=== PATIENT | female | born 1965 | race Caucasian/White ===

== ENCOUNTER 2016-07-07 16:40 | Inpatient (IN) | payer BC, OTHER ==
[~2016-07-07] VITALS: Ht 162.6 cm; Wt 59.0 kg
[2016-07-07] MEDS ORDERED: SODIUM CHLORIDE 0.9% 1L BAG IV* STA (17:42)
--- NOTE | 2016-07-07 18:05 | RADRPT ---
PROCEDURE: Chest x-ray CLINICAL INDICATION: Sepsis TECHNIQUE: Chest single view COMPARISON: None FINDINGS: There is a right IJ Port-A-Cath with tip in the SVC. The heart is normal in size. The pulmonary ve ssels are normal in caliber. The lungs are clear. The costophrenic angles are sharp. The visualiz ed bony thorax is unremarkable. Incidental surgical clips are noted in the right neck IMPRESSION: No acute cardiopulmonary disease. Port-A-Cath RPTAT: HH .Allen Gresham MD, MD Date Time Electronically viewed and signed by .Allen Gresham MD, on 07/07/2016 18:05 .W/
[2016-07-07] MEDS ORDERED: OXYC-279 PO (18:21)
[2016-07-07] MEDS ORDERED: ALPR1TAB7 PO (18:22)
[2016-07-07] MEDS ORDERED: OMEP40CA6 PO (18:23)
[2016-07-07] MEDS ORDERED: DULO60CA59 PO (18:23)
[2016-07-07] MEDS ORDERED: MORP15TA92 PO (18:24)
[2016-07-07 18:27] LABS: ADD SCAN DIFF NO
[2016-07-07 18:34] LABS: EOSINOPHILS % 0.1 % (0.0-7.0); HEMATOCRIT 23.3 % (37.0-47.0); HEMOGLOBIN 7.2 g/dl (12.0-16.0); LYMPHOCYTES # 1.4 10^3/ul (0.8-2.9); LYMPHOCYTES % 16.8 % (15.0-51.0); MEAN CORPUSCULAR HEMOGLOBIN 26.8 pg (29.0-33.0); MEAN CORPUSCULAR HGB CONC 30.9 g/dl (32.0-37.0); MEAN CORPUSCULAR VOLUME 86.6 fl (82.0-101.0); MONOCYTE # 0.7 10^3/ul (0.3-0.9); MONOCYTES % 8.4 % (0.0-11.0); NEUTROPHIL # 6.3 10^3/ul (1.6-7.5); NEUTROPHILS % 73.1 % (39.0-77.0); PLATELET COUNT 267 10^3/UL (140-415); RED BLOOD COUNT 2.69 10^6/ul (4.20-5.40); RED CELL DISTRIBUTION WIDTH 17.3 % (11.5-14.5); WHITE BLOOD COUNT 8.6 10^3/ul (4.8-10.8)
[2016-07-07 18:48] LABS: INR 1.07; PROTIME 13.9 Sec (12.2-14.2); PT RATIO 1.1
[2016-07-07 18:53] LABS: ALANINE AMINOTRANSFERASE 28 IU/L (13-69); ALBUMIN 2.9 g/dl (3.3-4.9); ALBUMIN/GLOBULIN RATIO 1.03; ALKALINE PHOSPHATASE 80 IU/L (42-121); ANION GAP 10 (8-16); ASPARTATE AMINO TRANSFERASE 26 IU/L (15-46); BLOOD UREA NITROGEN 15 mg/dl (7-20); CALCIUM 8.3 mg/dl (8.4-10.2); CARBON DIOXIDE 28 mmol/L (21-31); CHLORIDE 104 mmol/L (97-110); CREATININE 0.85 mg/dl (0.44-1.00); GLUCOSE 95 mg/dl (70-220); POTASSIUM 3.6 mmol/L (3.5-5.1); SODIUM 138 mmol/L (135-144); TOTAL PROTEIN 5.7 g/dl (6.1-8.1)
[2016-07-07] MEDS ORDERED: SOD CHLORIDE 0.9% 250 ML IV ONE (19:01)
[2016-07-07 19:04] LABS: TROPONIN-I < 0.012 ng/ml (0.00-0.12)
[2016-07-07] MEDS ORDERED: HYDROmorphONE 1 MG/ML SYG IV STA ×2 (19:11→21:08)
[2016-07-07 19:44] LABS: PARTIAL THROMBOPLASTIN TIME > 180.0 Sec (25.0-35.0)
[2016-07-07 20:09] LABS: ADD UMIC YES; URINE BILIRUBIN (Dip) NEGATIVE (NEGATIVE); URINE BLOOD (Dip) NEGATIVE (NEGATIVE); URINE COLOR LT. YELLOW (YELLOW); URINE GLUCOSE (Dip) NEGATIVE (NEGATIVE); URINE KETONES (Dip) NEGATIVE (NEGATIVE); URINE LEUKOCYTE ESTERASE (Dip) TRACE (NEGATIVE); URINE NITRITE (Dip) NEGATIVE (NEGATIVE); URINE TOTAL PROTEIN (Dip) NEGATIVE (NEGATIVE); URINE UROBILINOGEN (Dip) 0.2 E.U./dL (0.1-1.0)
[2016-07-07 20:17] LABS: SQUAMOUS EPITHELIAL CELL,UR FEW; URINE RBCS 0-2 /HPF (0)
[2016-07-07] MEDS ORDERED: CEFEPIME 1GM/50 ML (PMX) 50 ML IVPB ONE (20:30)
--- NOTE | 2016-07-07 21:22 | ERA ---
ER Documentation Chief Complaint Date/Time DATE: 07/07/16 TIME: 21:15 Chief Complaint HYPOTENSION, PALE, SENT FROM ONCOLOGIST OFFICE HPI This 50-year-old female presents to the ER with extreme hypotension her doctor' s office as well as feeling very weak dizzy and tired. She has a history of needing transfusions for anemia secondary her chemotherapy for her tongue cancer. She has previously had radiation and surgery however she developed tongue cancer in the other side of her tongue. Her last chemo was 2 weeks ago and she has become increasingly tired and occasionally short of breath since then. She was extremely lightheaded and weak today. She does deny chest pain as well as fevers and chills. ROS All systems reviewed and are negative except as per history of present illness. Medications Home Meds Reported Medications Morphine Sulfate* (Ms Contin*) 15 Mg Tablet.sa, 15 MG PO Q12, TAB 07/07/16 Duloxetine Hcl* (Duloxetine Hcl*) 60 Mg Capsule.dr, 120 MG PO DAILY, #30 CAP 07/07/16 Omeprazole* (Omeprazole*) 40 Mg Capsule.dr, 40 MG PO DAILY, #30 CAP 07/07/16 Alprazolam* (Alprazolam*) 1 Mg Tablet, 1 MG PO TID Y for ANXIETY, TAB 07/07/16 Oxycodone HCl/Acetaminophen (Percocet 5-325 mg Tablet) 1 Each Tablet, 2 TAB PO Q4H Y for PRN, TAB 07/07/16 Allergies Allergies: Coded Allergies: No Known Allergy (Unverified , 07/07/16) PMhx/Soc History of Surgery: Yes (LEFT ANKLE SX,OVARIAN CYST REMOVAL,GT PLACEMENT) Anesthesia Reaction: No Hx Neurological Disorder: No Hx Respiratory Disorders: No Hx Cardiac Disorders: No Hx Psychiatric Problems: No Hx Miscellaneous Medical Probl: Yes (TONGUE CA) Hx Alcohol Use: No Hx Substance Use: No Hx Tobacco Use: No Smoking Status: Never smoker Physical Exam Vitals Vital Signs Date Time Temp Pulse Resp B/P Pulse Ox O2 Delivery O2 Flow Rate FiO2 07/07/16 16:46 97.8 90 18 86/51 100 Physical Exam Const: [] Moderate distress, very uncomfortable appearing, pale, ill- appearing Head: Atraumatic Eyes: Pale conjunctiva, EOMI, PRL ENT: Normal External Ears, Nose and Mouth. Neck: Full range of motion..~ No meningismus. Resp: Clear to auscultation bilaterally Cardio: Regular rate and rhythm, no murmurs Abd: Soft, non tender, non distended. Normal bowel sounds Skin: No petechiae or rashes, very pale Back: No midline or flank tenderness Ext: No cyanosis, or edema, distal pulses 1 out of 4 all extremities. Strong central pulses Neur: Awake and alert and oriented 3, no focal deficits Psych: Normal Mood and Affect Result Diagram: 07/07/16 1800 07/07/16 1800 Results 24 hrs Laboratory Tests Test 07/07/16 18:00 07/07/16 19:58 White Blood Count 8.610^3/ul Red Blood Count 2.6910^6/ul Hemoglobin 7.2g/dl Hematocrit 23.3% Mean Corpuscular Volume 86.6fl Mean Corpuscular Hemoglobin 26.8pg Mean Corpuscular Hemoglobin Concent 30.9g/dl Red Cell Distribution Width 17.3% Platelet Count 30656^3/UL Mean Platelet Volume 11.0fl Neutrophils % 73.1% Lymphocytes % 16.8% Monocytes % 8.4% Eosinophils % 0.1% Basophils % 0.0% Nucleated Red Blood Cells % 0.0/100WBC Neutrophils # 6.310^3/ul Lymphocytes # 1.410^3/ul Monocytes # 0.710^3/ul Eosinophils # 0.010^3/ul Basophils # 0.010^3/ul Nucleated Red Blood Cells # 0.010^3/ul Prothrombin Time 13.9Sec Prothrombin Time Ratio 1.1 INR International Normalized Ratio 1.07 Activated Partial Thromboplast Time > 180.0Sec Sodium Level 138mmol/L Potassium Level 3.6mmol/L Chloride Level 104mmol/L Carbon Dioxide Level 28mmol/L Anion Gap 10 Blood Urea Nitrogen 15mg/dl Creatinine 0.85mg/dl Glucose Level 95mg/dl Lactic Acid Level 0.7mmol/L Calcium Level 8.3mg/dl Total Bilirubin 0.0mg/dl Direct Bilirubin 0.00mg/dl Indirect Bilirubin 0.0mg/dl Aspartate Amino Transf (AST/SGOT) 26IU/L Alanine Aminotransferase (ALT/SGPT) 28IU/L Alkaline Phosphatase 80IU/L Troponin I < 0.012ng/ml Total Protein 5.7g/dl Albumin 2.9g/dl Globulin 2.80g/dl Albumin/Globulin Ratio 1.03 Urine Color LT. YELLOW Urine Clarity CLEAR Urine pH 6.0 Urine Specific [place] <=1.005 Urine Ketones NEGATIVE Urine Nitrite NEGATIVE Urine Bilirubin NEGATIVE Urine Urobilinogen 0.2 E.U./dL Urine Leukocyte Esterase TRACE Urine Microscopic RBC 0-2/HPF Urine Microscopic WBC 5-10/HPF Urine Squamous Epithelial Cells FEW Urine Hemoglobin NEGATIVE Urine Glucose NEGATIVE% Urine Total Protein NEGATIVE Current Medications Medications (Trade) Dose Ordered Sig/Jason Route PRN Reason Start Time Stop Time Status Last Admin Dose Admin Sodium Chloride 2110 ml 2,110 ml BOLUS OVER 2 HOURS STAT IV* 07/07/16 17:42 07/07/16 17:44 DC 07/07/16 18:35 Sodium Chloride (NS) 250 ml @ 0 mls/hr Q0M ONCE IV 07/07/16 19:01 07/07/16 19:04 DC Hydromorphone HCl 1 mg 1 mg ONCE STAT IV 07/07/16 19:11 07/07/16 19:12 DC 07/07/16 19:23 Cefepime HCl (Maxipime 1gm/50 ml (Pmx)) 50 ml @ 100 mls/hr ONCE ONCE IVPB 07/07/16 20:30 07/07/16 20:59 DC Hydromorphone HCl (Dilaudid) 1 mg ONCE STAT IV 07/07/16 21:08 07/07/16 21:09 DC Procedures/MDM Acute hypotension and generalized weakness secondary to low hemoglobin. Urinary tract infection may also be a factor in this. Patient had 5-10 white cells per high-powered field and positive leukocyte esterase. Did give her 1 g of cefepime. Was also given a liter of IV fluid. Entrance using 2 units of packed red blood cells. Patient is not neutropenic currently. Patient was hypotensive initially but responded to fluid resuscitation and blood products administration. She did have severe pain of her tongue which is chronic secondary to her malignancy. She was given Dilaudid twice for this pain. She is going to be admitted for further monitoring, blood transfusion further treatment. Urine culture and blood cultures were obtained. Dr. Hughes is admitting. Chest x-ray interpretation normal sinus rhythm rate of 67, normal axis, normal intervals, no ST or T-wave changes concerning for acute ischemia v block saw operator interpretation: Normal sinus rhythm without arrhythmias Critical care time 31 minutes: This includes treatment of acute hypertension with symptomatic anemia immunosuppressed chemotherapy patient, antibiotic administration, careful fluid administration in the setting of need for blood products, multiple visits patient's bedside to reassess status, chart reviewed, discussion with admitting Dr. patient patient's significant other. This does not include any billable procedures. Departure Diagnosis: Primary Impression: Hypotension Additional Impressions: Symptomatic anemia UTI (urinary tract infection) Condition: Serious THERON STEVENS DO July 07, 2016 21:22
[2016-07-07] MEDS ORDERED: ACETAMINOPHEN 325 MG TAB PO PRN (22:00)
[2016-07-07] MEDS ORDERED: ONDANSETRON 4 MG INJ IV PRN (22:00)
[2016-07-07 22:30] VITALS: TEMP 96
[2016-07-07 23:00] VITALS: Ht 162.6 cm; Wt 59.0 kg
[2016-07-08] VITALS (12 sets, daily range): BP systolic 93–152; BP diastolic 52–67; PULSE 62–81; RESP 16–20
[2016-07-08] MEDS: HYDROmorphONE 1 MG/ML SYG IV PRN ×3 (00:55→11:49)
[2016-07-08] MEDS ORDERED: NACL 0.9% 3 ML SYG IV SCH (04:00)
[2016-07-08] MEDS ORDERED: DOCUSATE SODIUM 100 MG CAP PO PRN (04:00)
[2016-07-08] MEDS ORDERED: ACETAMINOPHEN 650 MG SUPP PR PRN (04:00)
[2016-07-08] MEDS ORDERED: BISACODYL (EC) 5 MG TAB PO PRN (04:00)
[2016-07-08] MEDS ORDERED: ACETAMINOPHEN 325 MG TAB PO PRN (04:00)
[2016-07-08] MEDS: FAMOTIDINE 20 MG TAB PO SCH ×2 (05:56→07:59)
[2016-07-08] MEDS: SOD CHLORIDE 0.9% 1,000 ML IV SCH ×2 (06:00→16:30)
[2016-07-08 07:31] LABS: ADD SCAN DIFF NO
[2016-07-08 07:40] LABS: BASOPHILS % 0.3 % (0.0-2.0); EOSINOPHILS % 0.3 % (0.0-7.0); HEMATOCRIT 30.2 % (37.0-47.0); HEMOGLOBIN 9.9 g/dl (12.0-16.0); LYMPHOCYTES # 1.5 10^3/ul (0.8-2.9); LYMPHOCYTES % 19.7 % (15.0-51.0); MEAN CORPUSCULAR HGB CONC 32.8 g/dl (32.0-37.0); MEAN CORPUSCULAR VOLUME 85.6 fl (82.0-101.0); MEAN PLATELET VOLUME 10.7 fl (7.4-10.4); MONOCYTE # 0.8 10^3/ul (0.3-0.9); MONOCYTES % 10.2 % (0.0-11.0); NEUTROPHIL # 5.1 10^3/ul (1.6-7.5); PLATELET COUNT 253 10^3/UL (140-415); RED BLOOD COUNT 3.53 10^6/ul (4.20-5.40); RED CELL DISTRIBUTION WIDTH 15.5 % (11.5-14.5); WHITE BLOOD COUNT 7.5 10^3/ul (4.8-10.8)
[2016-07-08 08:01] LABS: ALBUMIN 2.7 g/dl (3.3-4.9); ALBUMIN/GLOBULIN RATIO 1.03; BILIRUBIN,INDIRECT 0.1 mg/dl (0-1.1); BILIRUBIN,TOTAL 0.1 mg/dl (0.2-1.3); CALCIUM 8.4 mg/dl (8.4-10.2); CREATININE 0.83 mg/dl (0.44-1.00); POTASSIUM 3.5 mmol/L (3.5-5.1); TOTAL PROTEIN 5.3 g/dl (6.1-8.1)
--- NOTE | 2016-07-08 08:55 | HP ---
Date/Time of Note Date/Time of Note DATE: 07/08/16 TIME: 08:48 Assessment/Plan VTE Prophylaxis VTE Prophylaxis Intervention: contraindicated (Anemia) Lines/Catheters IV [facility]from [facility] Urinary Cath still in place: No Assessment/Plan Chief Complaint/Hosp Course This is a 50-year-old female being admitted to [facility] floor for: #1 symptomatic anemia: Patient had a hemoglobin of 7.2 she did receive blood transfusion. We will continue to monitor H&H every 6 hours. Patient does report that she has noticed some bright red blood per rectum when wiping. She denies she denies any overt pools of blood in the toilet. Will order occult stool for blood. And consult GI if necessary. #2 suspected UTI: Patient did have trace leukoesterase though she denies any overt urinary symptoms. She was started on cefepime by the ED physician. Secondary to her medical condition at this time and her active cancer treatment. I will treat her with Rocephin to complete a course for suspected UTI. #3 Tongue cancer: Patient is currently being treated by oncology for her recurrent cancer. Will consult patient's oncologist for any further management recommendations. #4 DVT GI prophylaxis: SCDs, famotidine Problems: HPI/ROS Admit Date/Time Admit Date/Time July 07, 2016 at 21:39 Hx of Present Illness This 50-year-old female presents to the ER with extreme hypotension her doctor' s office as well as feeling very weak dizzy and tired. She has a history of needing transfusions for anemia secondary her chemotherapy for her tongue cancer. She has previously had radiation and surgery however she developed tongue cancer in the other side of her tongue. Her last chemo was 2 weeks ago and she has become increasingly tired and occasionally short of breath since then. She was extremely lightheaded and weak today. She denies any fevers or chills or chest pain. Allergies: NKDA Medications: See MAR ROS Const: See HPI Eyes : No pain discharge or redness or change in visual acuity ENT: No pain, sore throat, congestion, congestion, dysphagia or discharge Respiratory: No shortness of breath, cough, sputum, wheezing, or pleuritic pain Cardiovascular: No chest pain, palpitation, PND, or edema GI : no change in appetite, abdominal pain, nausea, vomiting, diarrhea, constipation, or change in the color his stool Genitourinary: see HPI Musculoskeletal: No joint pain, back pain, neck pain, restricted range of motion in neck or joints Skin: No rash, bruising or hives Neuro: No headache, dizziness, syncope, seizure, focal weakness Endocrine: No polyuria, polydipsia, temperature intolerance Psych: No hallucination, depression, anxiety or suicidal ideation PMH/Family/Social Past Medical History Tongue cancer, anemia Past Surgical History Glossectomy, no surgery, left ankle repair Family History Significant Family History: diabetes Social History Smoking Status: Former smoker (5 cigarettes a day 10 years, quit 1 year ago) Exam/Review of Systems Vital Signs Vitals Vital Signs Date Time Temp Pulse Resp B/P Pulse Ox O2 Delivery O2 Flow Rate FiO2 07/08/16 08:07 62 07/08/16 07:13 97.7 16 109/59 95 07/07/16 22:30 Room Air Exam Exam General: Patient appears weak and fatigued HEENT: Dry mouth Neck: Supple with full range of motion. No rigidity or meningismus Chest: Nontender Lungs: Clear to auscultation bilaterally no crackles rales or wheezing Heart: Normal S1-S2, Regular rhythm and rate. No murmur Abdomen: Soft , nontender, nondistended , bowel sounds are present. No guarding no rebound tenderness , Extremities: Normal to inspection, no edema no cyanosis Neurologic: Normal mental status, speech normal, cranial nerves II through XII are intact, motor and sensory are intact, no focal weakness Additional Comments PROCEDURE: Chest x-ray CLINICAL INDICATION: Sepsis TECHNIQUE: Chest single view COMPARISON: None FINDINGS: There is a right IJ Port-A-Cath with tip in the SVC. The heart is normal in size. The pulmonary vessels are normal in caliber. The lungs are clear. The costophrenic angles are sharp. The visualized bony thorax is unremarkable. Incidental surgical clips are noted in the right neck IMPRESSION: No acute cardiopulmonary disease. Port-A-Cath Labs Result Diagram: 07/08/1645 07/08/16644 Medications Medications Current Medications Hydromorphone HCl (Dilaudid) 1 mg Q4H PRN IV PAIN Last administered on t 05:56; Admin Dose 1 MG; Start 07/08/16 at 00:30 Acetaminophen (Tylenol Tab) 650 mg Q6H PRN PO PAIN LEVEL 1-3 OR FEVER; Start at 04:00 Acetaminophen (Tylenol Supp) 650 mg Q6H PRN OR PAIN LEVEL 1-3 OR FEVER; Start 07/08/16 at 04:00 Docusate Sodium (Colace) 100 mg Q12H PRN PO CONSTIPATION; Start 07/08/16 at 04: 00 Bisacodyl (Dulcolax) 5 mg DAILY PRN PO CONSTIPATION; Start 07/08/16 at 04:00 Famotidine 20 mg 20 mg Q12 PO Last administered on 07/08/16 05:56; Admin Dose 20 MG; Start 07/08/16 at 04:10 Sodium Chloride (NS) 1,000 ml @ 80 mls/hr [id number] IV Last administered on 07/08 06:00; Admin Dose 80 MLS/HR; Start 07/08/16 at 04:00 RODOLFO DAVIS July 08, 2016 08:55
[2016-07-08] MEDS: CEFTRIAXONE 1 GM/50 ML (PMX) 50 ML IVPB SCH (11:48)
[2016-07-08 12:14] LABS: ADD SCAN DIFF NO
[2016-07-08 12:24] LABS: BASOPHILS % 0.2 % (0.0-2.0); EOSINOPHILS % 0.4 % (0.0-7.0); HEMATOCRIT 29.7 % (37.0-47.0); HEMOGLOBIN 9.9 g/dl (12.0-16.0); LYMPHOCYTES # 1.2 10^3/ul (0.8-2.9); LYMPHOCYTES % 21.4 % (15.0-51.0); MEAN CORPUSCULAR HEMOGLOBIN 28.3 pg (29.0-33.0); MEAN CORPUSCULAR HGB CONC 33.3 g/dl (32.0-37.0); MEAN CORPUSCULAR VOLUME 84.9 fl (82.0-101.0); MEAN PLATELET VOLUME 10.7 fl (7.4-10.4); MONOCYTE # 0.6 10^3/ul (0.3-0.9); MONOCYTES % 10.1 % (0.0-11.0); NEUTROPHIL # 3.7 10^3/ul (1.6-7.5); NEUTROPHILS % 66.3 % (39.0-77.0); PLATELET COUNT 247 10^3/UL (140-415); RED CELL DISTRIBUTION WIDTH 15.7 % (11.5-14.5); WHITE BLOOD COUNT 5.6 10^3/ul (4.8-10.8)
--- NOTE | 2016-07-08 15:01 | CONS ---
Date/Time of Note Date/Time of Note DATE: 07/08/16 TIME: 14:41 Assessment/Plan Assessment/Plan Additional Assessment/Plan Assessment * Anemia Hematochezia Consider lower GI bleed probably diverticulosis,inflammatory condition ,av malformation R/O upper GI bleed R/O tongue cancer History of chemotherapy sec to tongue cancer Plan * monitor hemoglobin and hematocrit q6 and transfuse 1 unit PRBC for Hgb <7.5,2 units PRBC Hgb less than 7 * EGD/colonoscopy 07/09/2016 risks and benefit explained to patient and agreed with planned procedure Consultation Date/Type/Reason Admit Date/Time July 07, 2016 at 21:39 Date of Consultation: July 08, 2016 Type of Consultation: Gastroenterology Reason for Consultation Anemia/hematochezia Referring Provider: CARLOS JOHN NP Hx of Present Illness 50 year old female with past medical history of tongue cancer who was sent to our emergency room because of hypotension and body weakness..She had undergone surgery,chemotherapy and receiving transfusions because of her cancer.Patient claims to have hematochezia for the past 2 week about 2 teaspoonful per episode, with associated vague abdominal pain.She denies epigastric pain but 4 years ago patient claims to have colonoscopy where polypectomy was performed and EGD which revealed gastritis. Emergency room course revealed a hemoglobin of &.2 and received 2 units PRBC.Present hemoglobin is 9.9.No episodes of hematochezia nor hematemesis Eyes: no complaints ENT: no complaints Respiratory: no complaints Cardiovascular: no complaints Gastrointestinal: flatus, nausea, other (hematocheizia) Genitourinary: no complaints Musculoskeletal: no complaints Skin: no complaints Neurologic: no complaints Endocrine: no complaints Lymphatic: no complaints Psychological: nl mood/affect, no complaints Immunologic: no complaints Past Medical History Medical History: other (toungue cancer) Past Surgical History Past Surgical Hx: other (toungue surgery) Family History Significant Family History: no pertinent family hx Social History Alcohol Use: rarely Smoking Status: Former smoker (5 cigarettes a day 10 years, quit 1 year ago) Drug Use: none Exam/Review of Systems Vital Signs Vitals Vital Signs Date Time Temp Pulse Resp B/P Pulse Ox O2 Delivery O2 Flow Rate FiO2 07/08/16 12:00 67 07/08/16 11:17 97.9 16 100/56 100 07/07/16 22:30 Room Air Intake and Output 07/07/16 07/07/16 07/08/16 15:00 23:00 07:00 Intake Total 80 ml Balance 80 ml Exam Constitutional: alert, oriented, well developed Psych: nl mood/affect Head: atraumatic, normocephalic Eyes: PERRL, nl lids, nl sclera Neck: non-tender, supple Respiratory: clear to auscultation, normal air movement Cardiovascular: nl pulses, regular rate and rhythm Gastrointestinal: nl liver, spleen, non-tender, soft Musculoskeletal: nl extremities to inspection Extremities: normal pulses Neurological: nl mental status, nl speech Skin: nl turgor, No rash or lesions Lymph: nl lymph nodes Results Result Diagram: 07/08/16 1155 07/08/16 0645 Results 24 hrs Laboratory Tests Test 07/07/16 18:00 07/07/16 19:58 07/07/16 21:45 07/07/16 23:50 White Blood Count 8.6 Red Blood Count 2.69 L Hemoglobin 7.2 L Hematocrit 23.3 L Mean Corpuscular Volume 86.6 Mean Corpuscular Hemoglobin 26.8 L Mean Corpuscular Hemoglobin Concent 30.9 L Red Cell Distribution Width 17.3 H Platelet Count 267 Mean Platelet Volume 11.0 H Neutrophils % 73.1 Lymphocytes % 16.8 Monocytes % 8.4 Eosinophils % 0.1 Basophils % 0.0 Nucleated Red Blood Cells % 0.0 Neutrophils # 6.3 Lymphocytes # 1.4 Monocytes # 0.7 Eosinophils # 0.0 Basophils # 0.0 Nucleated Red Blood Cells # 0.0 Prothrombin Time 13.9 Prothrombin Time Ratio 1.1 INR International Normalized Ratio 1.07 Activated Partial Thromboplast Time > 180.0 *H Sodium Level 138 Potassium Level 3.6 Chloride Level 104 Carbon Dioxide Level 28 Anion Gap 10 Blood Urea Nitrogen 15 Creatinine 0.85 Glucose Level 95 Lactic Acid Level 0.7 0.9 0.7 Calcium Level 8.3 L Total Bilirubin 0.0 L Direct Bilirubin 0.00 Indirect Bilirubin 0.0 Aspartate Amino Transf (AST/SGOT) 26 Alanine Aminotransferase (ALT/SGPT) 28 Alkaline Phosphatase 80 Troponin I < 0.012 Total Protein 5.7 L Albumin 2.9 L Globulin 2.80 Albumin/Globulin Ratio 1.03 Urine Color LT. YELLOW Urine Clarity CLEAR Urine pH 6.0 Urine Specific [place] <=1.005 L Urine Ketones NEGATIVE Urine Nitrite NEGATIVE Urine Bilirubin NEGATIVE Urine Urobilinogen 0.2 E.U./dL Urine Leukocyte Esterase TRACE H Urine Microscopic RBC 0-2 Urine Microscopic WBC 5-10 Urine Squamous Epithelial Cells FEW Urine Hemoglobin NEGATIVE Urine Glucose NEGATIVE Urine Total Protein NEGATIVE Test 07/08/16 06:45 07/08/16 11:55 White Blood Count 7.5 5.6 # Red Blood Count 3.53 #L 3.50 L Hemoglobin 9.9 #L 9.9 L Hematocrit 30.2 #L 29.7 L Mean Corpuscular Volume 85.6 84.9 Mean Corpuscular Hemoglobin 28.0 L 28.3 L Mean Corpuscular Hemoglobin Concent 32.8 33.3 Red Cell Distribution Width 15.5 H 15.7 H Platelet Count 253 247 Mean Platelet Volume 10.7 H 10.7 H Neutrophils % 68.0 66.3 Lymphocytes % 19.7 21.4 Monocytes % 10.2 10.1 Eosinophils % 0.3 0.4 Basophils % 0.3 0.2 Nucleated Red Blood Cells % 0.0 0.0 Neutrophils # 5.1 3.7 Lymphocytes # 1.5 1.2 Monocytes # 0.8 0.6 Eosinophils # 0.0 0.0 Basophils # 0.0 0.0 Nucleated Red Blood Cells # 0.0 0.0 Sodium Level 137 Potassium Level 3.5 Chloride Level 104 Carbon Dioxide Level 28 Anion Gap 9 Blood Urea Nitrogen 12 Creatinine 0.83 Glucose Level 92 Calcium Level 8.4 Total Bilirubin 0.1 L Direct Bilirubin 0.00 Indirect Bilirubin 0.1 Aspartate Amino Transf (AST/SGOT) 64 H Alanine Aminotransferase (ALT/SGPT) 36 Alkaline Phosphatase 111 Total Protein 5.3 L Albumin 2.7 L Globulin 2.60 Albumin/Globulin Ratio 1.03 Medications Medications Current Medications Hydromorphone HCl (Dilaudid) 1 mg Q4H PRN IV PAIN Last administered on t 11:49; Admin Dose 1 MG; Start 07/08/16 at 00:30 Acetaminophen (Tylenol Tab) 650 mg Q6H PRN PO PAIN LEVEL 1-3 OR FEVER; Start at 04:00 Acetaminophen (Tylenol Supp) 650 mg Q6H PRN AR PAIN LEVEL 1-3 OR FEVER; Start 07/08/16 at 04:00 Docusate Sodium (Colace) 100 mg Q12H PRN PO CONSTIPATION; Start 07/08/16 at 04: 00 Bisacodyl 5 mg 5 mg DAILY PRN PO CONSTIPATION; Start 07/08/16 at 04:00 Sodium Chloride 1,000 ml @ 80 mls/hr [id number] IV Last administered on 06:00; Admin Dose 80 MLS/HR; Start 07/08/16 at 04:00 Ceftriaxone Sodium (Rocephin) 50 ml @ 100 mls/hr Q24H IVPB Last administered on 07/08/16 11:48; Admin Dose 100 MLS/HR; Start 07/08/16 at 11:00 Pantoprazole (Protonix Iv) 40 mg BID@06,18 IV ; Start 07/08/16 at 18:00 REESE CARLTON MD July 08, 2016 14:52
[2016-07-08] MEDS ORDERED: VANCOMYCIN IV PER PHARMACY XX SCH (15:30)
[2016-07-08] MEDS ORDERED: BISACODYL (EC) 5 MG TAB PO ONE (15:30)
--- NOTE | 2016-07-08 15:46 | CONS ---
Date/Time of Note Date/Time of Note DATE: 07/08/16 TIME: 15:46 Assessment/Plan Assessment/Plan Chief Complaint/Hosp Course The patient is a 50 year old female with recurrent SCC of right oral tongue s/p right tongue partial glossectomy 11/21/15 pT2N0 s/p incomplete xrt 2/2 noncompliance, now with N3 LN left submandibular/posterior auricular LN, biopsy proven SCC, without distant mets on PET/CT, s/p cycle 2 induction chemotherapy with TPF chemotherapy (docetaxel, cisplatin, 5FU) on 06/18/16 with significant response to chemotherapy, no admitted for hypotension, symptomatic anemia, possible UTI. - Appreciate recommendations from Dr. Preston Potter. Plan for CT as inpatient to evaluate response to induction chemotherapy. Plan for Dr. Preston Brewer of ENT to evaluate as inpatient. Consider surgery first follow by post-op radiation therapy. - Patient s/p 2 units pRBC for symptomatic anemia with Hgb 7.2, now 9.9. Anemia likely related to chemotherapy however patient also notes blood in stool when wipes. FOBT pending. Patient evaluated by GI with plan for EGD/ Colonoscopy on 07/09/16. - UA with trace LE, neg nit, f/u UCx, patient on empiric ceftriaxone; CXR negative - PTT prolonged, will re-check coags, consider Vitamin K if remains prolonged - Nystatin swish and swallow added for thrush - Physical therapy evaluation given weakness - Continue IV fluids. BP, HR improved since admission. Problems: Consultation Date/Type/Reason Admit Date/Time July 07, 2016 at 21:39 Date of Consultation: July 08, 2016 Type of Consultation: Oncology Reason for Consultation recurrent SCC right oral tongue Hx of Present Illness The patient is a 50 year old female with recurrent SCC of right oral tongue s/p right tongue partial glossectomy 11/21/15 pT2N0 s/p incomplete xrt 2/2 noncompliance, now with N3 LN left submandibular/posterior auricular LN, biopsy proven SCC, without distant mets on PET/CT, s/p cycle 2 induction chemotherapy with TPF chemotherapy (docetaxel, cisplatin, 5FU) on 06/18/16 with significant response to chemotherapy so far. She was recently admitted to [facility] 06/18/16 for pancytopenia, mucositis, electrolyte abnormalities 06/26/16 to 06/30/16 as she missed her neulasta dose due to inability to come to clinic secondary to weakness. She came to clinic 07/07/16 and was found to have BP 65/51, feeling lightheaded and "shaky," and was sent to the [facility] ER. At home she had chani eating and drinking more with decreased mucosiits. Patient states that she now feels better though still weak. She has noticed blood on the toilet paper when she wipes for the last few weeks. Eyes: no complaints ENT: no complaints Respiratory: no complaints Cardiovascular: no complaints Gastrointestinal: flatus, nausea, other (hematocheizia) Genitourinary: no complaints Musculoskeletal: no complaints Skin: no complaints Neurologic: no complaints Endocrine: no complaints Lymphatic: no complaints Psychological: nl mood/affect Immunologic: no complaints Past Medical History Tongue SCC Medical History: other (toungue cancer) Past Surgical History Past Surgical Hx: other (toungue surgery) Family History Significant Family History: cancer (father with lymphoma at age 60) Social History Alcohol Use: rarely Smoking Status: Former smoker (5 cigarettes a day 10 years, quit 1 year ago) Drug Use: none Exam/Review of Systems Vital Signs Vitals Vital Signs Date Time Temp Pulse Resp B/P Pulse Ox O2 Delivery O2 Flow Rate FiO2 07/08/16 15:16 97.9 66 18 129/60 99 07/07/16 22:30 Room Air Intake and Output 07/07/16 07/07/16 07/08/16 15:00 23:00 07:00 Intake Total 80 ml Balance 80 ml Exam Constitutional: alert, frail, oriented Head: normocephalic Eyes: nl conjunctiva Neck: supple Respiratory: clear to auscultation Cardiovascular: regular rate and rhythm Gastrointestinal: non-tender, soft Musculoskeletal: nl extremities to inspection Results Result Diagram: 07/08/16 1155 07/08/16 0645 Results 24 hrs Laboratory Tests Test 07/07/16 18:00 07/07/16 19:58 07/07/16 21:45 07/07/16 23:50 White Blood Count 8.6 Red Blood Count 2.69 L Hemoglobin 7.2 L Hematocrit 23.3 L Mean Corpuscular Volume 86.6 Mean Corpuscular Hemoglobin 26.8 L Mean Corpuscular Hemoglobin Concent 30.9 L Red Cell Distribution Width 17.3 H Platelet Count 267 Mean Platelet Volume 11.0 H Neutrophils % 73.1 Lymphocytes % 16.8 Monocytes % 8.4 Eosinophils % 0.1 Basophils % 0.0 Nucleated Red Blood Cells % 0.0 Neutrophils # 6.3 Lymphocytes # 1.4 Monocytes # 0.7 Eosinophils # 0.0 Basophils # 0.0 Nucleated Red Blood Cells # 0.0 Prothrombin Time 13.9 Prothrombin Time Ratio 1.1 INR International Normalized Ratio 1.07 Activated Partial Thromboplast Time > 180.0 *H Sodium Level 138 Potassium Level 3.6 Chloride Level 104 Carbon Dioxide Level 28 Anion Gap 10 Blood Urea Nitrogen 15 Creatinine 0.85 Glucose Level 95 Lactic Acid Level 0.7 0.9 0.7 Calcium Level 8.3 L Total Bilirubin 0.0 L Direct Bilirubin 0.00 Indirect Bilirubin 0.0 Aspartate Amino Transf (AST/SGOT) 26 Alanine Aminotransferase (ALT/SGPT) 28 Alkaline Phosphatase 80 Troponin I < 0.012 Total Protein 5.7 L Albumin 2.9 L Globulin 2.80 Albumin/Globulin Ratio 1.03 Urine Color LT. YELLOW Urine Clarity CLEAR Urine pH 6.0 Urine Specific [place] <=1.005 L Urine Ketones NEGATIVE Urine Nitrite NEGATIVE Urine Bilirubin NEGATIVE Urine Urobilinogen 0.2 E.U./dL Urine Leukocyte Esterase TRACE H Urine Microscopic RBC 0-2 Urine Microscopic WBC 5-10 Urine Squamous Epithelial Cells FEW Urine Hemoglobin NEGATIVE Urine Glucose NEGATIVE Urine Total Protein NEGATIVE Test 07/08/16 06:45 07/08/16 11:55 White Blood Count 7.5 5.6 # Red Blood Count 3.53 #L 3.50 L Hemoglobin 9.9 #L 9.9 L Hematocrit 30.2 #L 29.7 L Mean Corpuscular Volume 85.6 84.9 Mean Corpuscular Hemoglobin 28.0 L 28.3 L Mean Corpuscular Hemoglobin Concent 32.8 33.3 Red Cell Distribution Width 15.5 H 15.7 H Platelet Count 253 247 Mean Platelet Volume 10.7 H 10.7 H Neutrophils % 68.0 66.3 Lymphocytes % 19.7 21.4 Monocytes % 10.2 10.1 Eosinophils % 0.3 0.4 Basophils % 0.3 0.2 Nucleated Red Blood Cells % 0.0 0.0 Neutrophils # 5.1 3.7 Lymphocytes # 1.5 1.2 Monocytes # 0.8 0.6 Eosinophils # 0.0 0.0 Basophils # 0.0 0.0 Nucleated Red Blood Cells # 0.0 0.0 Sodium Level 137 Potassium Level 3.5 Chloride Level 104 Carbon Dioxide Level 28 Anion Gap 9 Blood Urea Nitrogen 12 Creatinine 0.83 Glucose Level 92 Calcium Level 8.4 Total Bilirubin 0.1 L Direct Bilirubin 0.00 Indirect Bilirubin 0.1 Aspartate Amino Transf (AST/SGOT) 64 H Alanine Aminotransferase (ALT/SGPT) 36 Alkaline Phosphatase 111 Total Protein 5.3 L Albumin 2.7 L Globulin 2.60 Albumin/Globulin Ratio 1.03 Medications Medications Current Medications Hydromorphone HCl (Dilaudid) 1 mg Q4H PRN IV PAIN Last administered on 11:49; Admin Dose 1 MG; Start 07/08/16 at 00:30 Acetaminophen (Tylenol Tab) 650 mg Q6H PRN PO PAIN LEVEL 1-3 OR FEVER; Start at 04:00 Acetaminophen (Tylenol Supp) 650 mg Q6H PRN [place] PAIN LEVEL 1-3 OR FEVER; Start 07/08/16 at 04:00 Docusate Sodium (Colace) 100 mg Q12H PRN PO CONSTIPATION; Start 07/08/16 at 04: 00 Bisacodyl 5 mg 5 mg DAILY PRN PO CONSTIPATION; Start 07/08/16 at 04:00 Sodium Chloride 1,000 ml @ 80 mls/hr [id number] IV Last administered on 06:00; Admin Dose 80 MLS/HR; Start 07/08/16 at 04:00 Ceftriaxone Sodium (Rocephin) 50 ml @ 100 mls/hr Q24H IVPB Last administered on 07/08/16 11:48; Admin Dose 100 MLS/HR; Start 07/08/16 at 11:00 Pantoprazole (Protonix Iv) 40 mg BID@06,18 IV ; Start 07/08/16 at 18:00 Magnesium Citrate (Citroma) 300 ml ONCE ONCE PO ; Start 07/08/16 at 17:30; Stop 07/08/16 at 17:31 Polyethylene Glycol 119 gm 119 gm ONCE ONCE PO ; Start 07/08/16 at 18:30; Stop 07/08/16 at 18:31 Vancomycin HCl 1.25 gm/Sodium Chloride 250 ml @ 83.333 mls/ hr ONCE IVPB ; Start 07/08/16 at 16:30; Stop 07/08/16 at 19:29 Vancomycin HCl/ Sodium Chloride (Vancocin/NS) 150 ml @ 75 mls/hr Q12H IVPB ; Start 07/09/16 at 04:00 TOMARY MD July 08, 2016 15:46
[2016-07-08 15:56] LABS: ADD SCAN DIFF NO
[2016-07-08 15:57] LABS: BASOPHILS % 0.2 % (0.0-2.0); EOSINOPHILS % 0.4 % (0.0-7.0); HEMATOCRIT 30.9 % (37.0-47.0); HEMOGLOBIN 10.3 g/dl (12.0-16.0); LYMPHOCYTES # 1.3 10^3/ul (0.8-2.9); LYMPHOCYTES % 25.2 % (15.0-51.0); MEAN CORPUSCULAR HEMOGLOBIN 28.2 pg (29.0-33.0); MEAN CORPUSCULAR HGB CONC 33.3 g/dl (32.0-37.0); MEAN CORPUSCULAR VOLUME 84.7 fl (82.0-101.0); MEAN PLATELET VOLUME 10.4 fl (7.4-10.4); MONOCYTE # 0.6 10^3/ul (0.3-0.9); MONOCYTES % 10.7 % (0.0-11.0); NEUTROPHIL # 3.3 10^3/ul (1.6-7.5); NEUTROPHILS % 62.2 % (39.0-77.0); PLATELET COUNT 258 10^3/UL (140-415); RED BLOOD COUNT 3.65 10^6/ul (4.20-5.40); RED CELL DISTRIBUTION WIDTH 15.9 % (11.5-14.5); WHITE BLOOD COUNT 5.3 10^3/ul (4.8-10.8)
--- NOTE | 2016-07-08 16:01 | CONS ---
DATE OF ADMISSION: 07/07/2016 DATE OF CONSULTATION: 07/08/2016 TYPE FOR CONSULTATION: Infectious Disease REASON FOR CONSULTATION: Antibiotic management. HISTORY OF PRESENT ILLNESS: Leonarda Horvath is a 50-year-old female who presents to the emergency fran with hypotension with feeling of being very weak, dizzy and tired. She has a history of anemia wi th need for transfusions in the past secondary to chemotherapy for her tongue cancer. She had radia tion and surgery. However, she developed tongue cancer on the other side of her tongue. Her last c hemotherapy was 2 weeks ago. She became increasingly tired, short of breath, lightheaded and came i nto the emergency room. On admission, her white count was 7.5. Her hemoglobin was 7.2 when she was admitted. She now has a hemoglobin of 9.9 and hematocrit 30.2, and platelet count 253,000. BUN an d creatinine 12/0.83, glucose of 92. PAST MEDICAL HISTORY: Operations as outlined. Status post glossectomy. She also had left ankle re pair. She has a history of tongue cancer and anemia. FAMILY HISTORY: Positive for diabetes. SOCIAL HABITS: Former smoker 5 cigarettes a day for 10 years, quit 1 year ago. ALLERGIES: NONE TO PENICILLIN, SULFA OR FOODS. MEDICATIONS: Per chart. REVIEW OF SYSTEMS: As per HPI. PHYSICAL EXAMINATION: GENERAL: The patient is a well-developed, well-nourished female, alert, responsive, in no acute dis tress. VITAL SIGNS: Stable. She is afebrile. SKIN: Without generalized rash. HEENT: She has pain or sore throat. NECK: Supple. LYMPH NODES: None palpable. CHEST: Decreased breath sounds at the bases. HEART: Without murmur or gallop. ABDOMEN: Soft, nontender, without organosplenomegaly or masses. EXTREMITIES: Without cyanosis, clubbing, or edema. RECTAL AND GENITAL: Deferred. NEUROLOGIC: No focal neurological abnormalities. ANCILLARY DATA: Chest x-ray shows a right IJ Port-A-Cath with the tip in the SVC. Surgical clips i n the right neck. No acute cardiopulmonary disease. PLAN: The patient was placed on vancomycin and ceftriaxone. White count today is 5.6. Urine is tr chidi leukocyte esterase, 5 to 10 white cells per high-power field. BUN and creatinine are 12/0.83. Microbiology: Blood cultures show gram-positive cocci in pairs and clusters. Urine shows no growth . As noted, she is on vancomycin and ceftriaxone to cover this. She had repeat blood cultures toda y. I will dictate my findings to the hospitalist. Dictated By: LORNA MONTANEZ MD, JD/EMMANUEL Conf#: [id number] DID#: [id number]
[2016-07-08] MEDS ORDERED: VANCOMYCIN 1.25 GM in SOD CHLORIDE 0.9% 250 ML IVPB SCH (16:30)
[2016-07-08] MEDS: NYSTATIN SUSP 5 ML CUP PO SCH ×2 (16:35→20:44)
[2016-07-08 16:36] LABS: INR 0.92; PARTIAL THROMBOPLASTIN TIME 29.3 Sec (25.0-35.0); PROTIME 12.4 Sec (12.2-14.2)
[2016-07-08] MEDS ORDERED: MAGNESIUM CITRATE 300 ML BTL PO ONE (17:30)
[2016-07-08] MEDS: PANTOPRAZOLE 40 MG INJ IV SCH (18:08)
[2016-07-08] MEDS ORDERED: POLYETHYLENE GLYCOL 3350 119 GM POWDER PO ONE (18:30)
[2016-07-09] VITALS (15 sets, daily range): BP systolic 81–152; BP diastolic 41–82; PULSE 54–75; RESP 10–20
[2016-07-09] MEDS: VANCOMYCIN 750 MG in SOD CHLORIDE 0.9% 150 ML IVPB SCH ×2 (04:43→16:23)
[2016-07-09] MEDS: SOD CHLORIDE 0.9% 1,000 ML IV SCH ×2 (05:00→10:04)
[2016-07-09] MEDS: PANTOPRAZOLE 40 MG INJ IV SCH ×2 (05:19→17:40)
[2016-07-09] MEDS ORDERED: POLYETHYLENE GLYCOL 3350 119 GM POWDER PO ONE ×2 (06:00→18:30)
[2016-07-09] MEDS ORDERED: BISACODYL (EC) 5 MG TAB PO ONE ×3 (06:00→13:00)
[2016-07-09 07:32] LABS: ADD SCAN DIFF NO
[2016-07-09 07:36] LABS: BASOPHILS % 0.2 % (0.0-2.0); EOSINOPHILS % 0.4 % (0.0-7.0); HEMATOCRIT 31.8 % (37.0-47.0); HEMOGLOBIN 10.5 g/dl (12.0-16.0); LYMPHOCYTES # 1.4 10^3/ul (0.8-2.9); LYMPHOCYTES % 27.7 % (15.0-51.0); MEAN CORPUSCULAR HEMOGLOBIN 28.1 pg (29.0-33.0); MEAN PLATELET VOLUME 10.3 fl (7.4-10.4); MONOCYTE # 0.5 10^3/ul (0.3-0.9); MONOCYTES % 10.2 % (0.0-11.0); NEUTROPHILS % 60.3 % (39.0-77.0); PLATELET COUNT 251 10^3/UL (140-415); RED BLOOD COUNT 3.74 10^6/ul (4.20-5.40); RED CELL DISTRIBUTION WIDTH 16.1 % (11.5-14.5)
[2016-07-09 08:04] LABS: MAGNESIUM 1.4 mg/dl (1.7-2.5); PHOSPHORUS 4.2 mg/dl (2.5-4.9)
[2016-07-09 08:52] LABS: ALBUMIN 2.8 g/dl (3.3-4.9); ALBUMIN/GLOBULIN RATIO 1.16; CALCIUM 8.6 mg/dl (8.4-10.2); CREATININE 0.8 mg/dl (0.44-1.00); TOTAL PROTEIN 5.2 g/dl (6.1-8.1)
[2016-07-09] MEDS: NYSTATIN SUSP 5 ML CUP PO SCH ×4 (09:00→21:55)
[2016-07-09] MEDS: CEFTRIAXONE 1 GM/50 ML (PMX) 50 ML IVPB SCH (10:03)
[2016-07-09] MEDS ORDERED: LIDOCAINE 2% (SDV) 5 ML INJ ONE (11:51)
[2016-07-09] MEDS ORDERED: PROPOFOL 40 ML ONE (11:51)
--- NOTE | 2016-07-09 12:15 | PN ---
DATE: 07/09/2016 SUBJECTIVE DATA: The patient is going for EGDcopy and colonoscopy today. OBJECTIVE DATA: VITAL SIGNS: Temperature 98.0, pulse rate 71, respiratory rate 18, blood pressure 115/58, oxygen saturation 98% on room air. GENERAL: This is a 50-year-old female patient lying in bed in no apparent distress. HEENT: Head normocephalic. Alopecia noted. Eyes: Anicteric sclerae. Conjunctivae clear. ENT: Nasal septum is midline. Oral mucosa is dry. NECK: Supple. No JVD noticed. RESPIRATORY: Bilaterally clear to auscultation. No adventitious breath sounds. No use of accessory muscles of respiration. CARDIOVASCULAR: S1, S2 heard. GASTROINTESTINAL: Abdomen soft, nontender, nondistended. Bowel sounds positive in all 4 quadrants. GENITOURINARY: Deferred. EXTREMITIES: No cyanosis, no clubbing, no edema. Peripheral pulses are palpable. NEUROLOGIC: The patient is awake, alert and oriented. Cranial nerves are grossly intact. LABORATORY AND DIAGNOSTIC DATA: WBC 5.0, hemoglobin 10.5, hematocrit 31.8, platelet count 251. Sodium 138, potassium 4.0, chloride 104, carbon dioxide 20 , anion gap 10, BUN 10, creatinine 0.80, glucose 89, calcium 8.6, phosphorus 4.2 , magnesium 1.4. ASSESSMENT AND PLAN: 1. Symptomatic anemia. Most likely secondary to acute blood loss. Status post 2 units of packed red blood cell transfusion. The patient was evaluated by gastroenterology. The patient is scheduled to undergo esophagogastroduodenoscopy and colonoscopy. 2. Melena. The patient evaluated by gastroenterology. The patient is scheduled for esophagogastroduodenoscopy and colonoscopy. The patient on proton pump inhibitors. 3. Tongue cancer. The patient is being followed by oncology. Management as per oncology. 4. Gram-positive bacteremia. The patient is being followed by infectious diseases. Continue antibiotics. No evidence of any septic shock. 5. Fluid, electrolytes and nutrition. Currently n.p.o. for endoscopy. 6. Deep venous thrombosis prophylaxis. Bilateral sequential compression devices. 7. Gastrointestinal prophylaxis. Proton pump inhibitors PLAN: Await esophagogastroduodenoscopy and colonoscopy. Continue antibiotics. Replete magnesium. Case discussed with Dr. Villanueva. CARLOS VILLANUEVA MD, AM/EMMANUEL Conf#: [id number] [facility]#: [id number] MTDD
[2016-07-09] MEDS ORDERED: MAGNESIUM SULFATE 3 GM in SOD CHLORIDE 0.9% 100 ML IVPB ONE (13:00)
--- NOTE | 2016-07-09 13:02 | GILP ---
DATE OF PROCEDURE: 07/09/2016 PROCEDURE: Esophagogastroduodenoscopy with biopsies. PREMEDICATION: Monitored anesthesia care by anesthesiologist. SURGEON: Betsy Vila MD. INSTRUMENT USE: Olympus panendoscope. TECHNIQUE: After informed consent, with the patient/relatives understanding the procedure, its savannah cations, potential risks and complications, including but not limited to: allergic reaction, bleedin g, perforation or infection, and after all pertinent questions were answered to the patients satisfa ction, the patient/relatives signed witnessed informed consent. Following this, premedication was administered slowly IV push under careful cardiovascular and respi ratory monitoring with pulse oximetry, automatic blood pressure and platform material handling supervisor. Once the sedative effect was achieved the patient was place in the left lateral decubitus, the panen doscope was introduced and advanced under visual control. Careful examination of the upper gastrointestinal tract, both on insertion as well as withdrawal of the instrument disclosed the following findings: ESOPHAGUS: There is significant erythema and edema of the mucosa of the mid and distal esophagus wi th superficial erosion present. Small hiatal hernia is present. STOMACH: Upon entrance to the stomach air was insufflated, the gastric thomason distended normally. Th e mucosa of the fundus, body and antrum of the stomach was carefully examined, shows erythema and ed kelsey of the mucosa of a moderate degree. Biopsies were obtained to rule out H. pylori infection. PYLORUS: The pylorus appears patent and within normal limits, with no evidence of gastric outlet ob struction. DUODENUM: The duodenal mucosa was carefully examined in the duodenal bulb as well as the second por tion of the duodenum and appears unremarkable with no evidence of duodenitis, ulcer or neoplasm. Th e are normal. The instrument was then withdrawn, the patient tolerated the procedure well and was transfer out of the endoscopy suite awake, and in good condition to continue recovery under observation IMPRESSION: 1. Erosive esophagitis. 2. Hiatal hernia. 3. Mild gastritis, rule out Helicobacter pylori infection, biopsies obtained. PLAN: We will continue PPI double dose and further recommendation will depend on pathology we revie w, as well as patient's clinical course. Dictated By: BETSY VILA MS/EMMANUEL Conf#: [id number] DID#: [id number]
--- NOTE | 2016-07-09 13:10 | GILP ---
DATE OF PROCEDURE: PROCEDURE: Attempted Colonoscopy. BRIEF HISTORY AND INDICATIONS: The patient is being evaluated for recurrent episodes of hematochezi a. PREMEDICATION: Monitored anesthesia care by anesthesiologist. TECHNIQUE: After informed consent, the patient has an understanding the procedure, potential risks and complications as well as alternatives, and after informed consent was obtained, the patient was placed in the left lateral decubitus, digital rectal examination was performed showing small externa l hemorrhoids. Otherwise, no abnormalities. Following this, Olympus colonoscope was introduced. U nfortunately, the rectal vault in contained large amounts of solid stool. We advanced the instrumen t hoping to find clearance in the more proximal colon as the patient did take preparation. Unfortun ately, as we reached further into the colon including the splenic flexure, no significant improvemen t was noted. The procedure is therefore inadequate for any degree of reevaluation. The instrument was withdrawn. The patient will require reprep and reschedule. Moderate sized internal hemorrhoids are noted on withdrawal of the instrument through the anal canal. IMPRESSION: 1. Solid stool precludes examination. 3. Plan reprep and reschedule. Dictated By: REESE CARLTON MS/EMMANUEL Conf#: [id number] DID#: [id number]
--- NOTE | 2016-07-09 14:29 | PN ---
DATE: 07/09/2016 SUBJECTIVE: No acute changes. The patient is lying comfortably in bed. No fevers. LABORATORY DATA: WBC 5, no shift, no bands. BUN 10, creatinine 0.80. MICROBIOLOGY: Blood culture growing staph species. Urine culture grew lactobacillus species, both susceptible to contaminant. ANTIMICROBIALS: The patient is on: 1. IV vancomycin. 2. Rocephin. DIAGNOSTICS: Chest x-ray revealed no acute cardiopulmonary disease. INDWELLINGS: Right Port-A-Cath. PHYSICAL EXAMINATION: GENERAL: This is a well-developed, well-nourished woman who is awake, in no distress. HEENT: Head atraumatic, normocephalic. Sclerae anicteric. Buccal mucosa dry. NECK: Supple. CHEST: Rise symmetrical. Breath sounds diminished to bases. HEART: S1, S2. ABDOMEN: Soft. Bowel sounds present. EXTREMITIES: Without cyanosis. ASSESSMENT: 1. Coagulase-negative Staphylococcus bacteremia, likely contaminant, although possibility of line s epsis needs to be excluded. 2. Generalized weakness. 3. History of tongue cancer, status post chemoradiation and surgical intervention. 4. Anemia, status post esophagogastroduodenoscopy and colonoscopy today, where colonoscopy was inad equate secondary to poor preparation, EGD revealed erosive esophagitis and mild gastritis. 5. Positive urinalysis on admission with urine culture consistent with contaminant. PLAN: We are going to repeat blood cultures from Port-A-Cath. Repeat urine cultures. Continue on current antibiotics for now. Await for pathology report. Follow recommendations of consultants. Dictated By: LJ DOWELL [employer] INST[employer]ER for LORNA DORAN/EMMANUEL Conf#: [id number] DID#: [id number]
[2016-07-09] MEDS: LACTULOSE 30ML CUP PO SCH ×3 (16:22→18:23)
--- NOTE | 2016-07-09 16:29 | CONS ---
Date/Time of Note Date/Time of Note DATE: 07/09/16 TIME: 16:26 Assessment/Plan Assessment/Plan Chief Complaint/Hosp Course The patient is a 50 year old female with recurrent SCC of right oral tongue s/p right tongue partial glossectomy 11/21/15 pT2N0 s/p incomplete xrt 2/2 noncompliance, now with N3 LN left submandibular/posterior auricular LN, biopsy proven SCC, without distant mets on PET/CT, s/p cycle 2 induction chemotherapy with TPF chemotherapy (docetaxel, cisplatin, 5FU) on 06/18/16 with significant response to chemotherapy, no admitted for hypotension, symptomatic anemia, possible UTI. - Appreciate recommendations from Dr. Preston Potter. Awaiting CT as inpatient to evaluate response to induction chemotherapy. Plan for Dr. Preston Brewer of ENT to evaluate as inpatient. Consider surgery first follow by post-op radiation therapy. - Patient s/p 2 units pRBC for symptomatic anemia with Hgb 7.2, now stable at 10.5. Anemia likely related to chemotherapy however patient also notes blood in stool when wipes. FOBT pending. Patient status post esophagogastroduodenoscopy and colonoscopy today, where colonoscopy was inadequate secondary to poor preparation, EGD revealed erosive esophagitis and mild gastritis on PPI. f/u path report - coagulase-negative Staphylococcus bacteremia, likely contaminant, although possibility of line sepsis needs to be excluded per ID. Positive urinalysis on admission with urine culture consistent with contaminant per ID. Plan to repeat blood cultures from Port-A-Cath. Repeat urine cultures. Continue on current antibiotics of vanc and ceftriaxone for now. A - repeat coags WNL - Nystatin swish and swallow added for thrush - Physical therapy evaluation given weakness - Continue IV fluids. BP, HR improved since admission. Problems: Consultation Date/Type/Reason Admit Date/Time July 07, 2016 at 21:39 Initial Consult Date 07/08/16 Type of Consultation: Oncology Referring Provider: CARLOS JOHN SEISMOGRAPH RECORDER 24 HR Interval Summary Free Text/Dictation The patient still feels fatigued. She has nausea and diarrhea from the bowel prep. Exam/Review of Systems Vital Signs Vitals Vital Signs Date Time Temp Pulse Resp B/P Pulse Ox O2 Delivery O2 Flow Rate FiO2 07/09/16 16:16 71 07/09/16 16:13 98.0 18 133/65 98 07/09/16 13:00 Nasal Cannula 2.0 Intake and Output 07/08/16 07/08/16 07/09/16 15:00 23:00 07:00 Intake Total 650 ml 900 ml Balance 650 ml 900 ml Exam Constitutional: alert, frail, oriented Psych: no complaints Head: normocephalic Eyes: nl conjunctiva Neck: non-tender, supple Respiratory: clear to auscultation Cardiovascular: regular rate and rhythm Gastrointestinal: non-tender, soft Genitourinary - Female: nl adnexae Musculoskeletal: nl extremities to inspection Results Result Diagram: 07/09/16 0639 07/09/16 0634 Results 24 hrs Laboratory Tests Test 07/09/16 05:38 07/09/16 06:34 07/09/16 06:39 Lab Scanned Report BLOOD TRANSFUSION Sodium Level 138 Potassium Level 4.0 Chloride Level 104 Carbon Dioxide Level 28 Anion Gap 10 Blood Urea Nitrogen 10 Creatinine 0.80 Glucose Level 89 Calcium Level 8.6 Phosphorus Level 4.2 Magnesium Level 1.4 L Total Bilirubin 0.0 L Direct Bilirubin 0.00 Indirect Bilirubin 0.0 Aspartate Amino Transf (AST/SGOT) 56 H Alanine Aminotransferase (ALT/SGPT) 49 Alkaline Phosphatase 157 H Total Protein 5.2 L Albumin 2.8 L Globulin 2.40 Albumin/Globulin Ratio 1.16 White Blood Count 5.0 Red Blood Count 3.74 L Hemoglobin 10.5 L Hematocrit 31.8 L Mean Corpuscular Volume 85.0 Mean Corpuscular Hemoglobin 28.1 L Mean Corpuscular Hemoglobin Concent 33.0 Red Cell Distribution Width 16.1 H Platelet Count 251 Mean Platelet Volume 10.3 Neutrophils % 60.3 Lymphocytes % 27.7 Monocytes % 10.2 Eosinophils % 0.4 Basophils % 0.2 Nucleated Red Blood Cells % 0.0 Neutrophils # 3.0 Lymphocytes # 1.4 Monocytes # 0.5 Eosinophils # 0.0 Basophils # 0.0 Nucleated Red Blood Cells # 0.0 Medications Medications Current Medications Hydromorphone HCl (Dilaudid) 1 mg Q4H PRN IV PAIN Last administered on t 11:49; Admin Dose 1 MG; Start 07/08/16 at 00:30 Acetaminophen (Tylenol Tab) 650 mg Q6H PRN PO PAIN LEVEL 1-3 OR FEVER; Start at 04:00 Acetaminophen (Tylenol Supp) 650 mg Q6H PRN [place] PAIN LEVEL 1-3 OR FEVER; Start 07/08/16 at 04:00 Docusate Sodium (Colace) 100 mg Q12H PRN PO CONSTIPATION; Start 07/08/16 at 04: 00 Bisacodyl 5 mg 5 mg DAILY PRN PO CONSTIPATION; Start 07/08/16 at 04:00 Sodium Chloride 1,000 ml @ 80 mls/hr [id number] IV Last administered on 10:04; Admin Dose 80 MLS/HR; Start 07/08/16 at 04:00 Ceftriaxone Sodium (Rocephin) 50 ml @ 100 mls/hr Q24H IVPB Last administered on 07/09/16 10:03; Admin Dose 100 MLS/HR; Start 07/08/16 at 11:00 Pantoprazole 40 mg 40 mg BID@06,18 IV Last administered on 07/09/16 05:19; Admin Dose 40 MG; Start 07/08/16 at 18:00 Vancomycin HCl/ Sodium Chloride (Vancocin/NS) 150 ml @ 75 mls/hr Q12H IVPB Last administered on 07/09/16 04:43; Admin Dose 75 MLS/HR; Start 07/09/16 at 04 :00 Nystatin (Nystatin Susp) 5 ml QID PO Last administered on 07/08/16 20:44; Admin Dose 5 ML; Start 07/08/16 at 17:00 Magnesium Citrate (Citroma) 300 ml ONCE ONCE PO ; Start 07/09/16 at 17:30; Stop 07/09/16 at 17:31 Polyethylene Glycol (Miralax) 119 gm ONCE ONCE PO ; Start 07/09/16 at 18:30; Stop 07/09/16 at 18:31 Lactulose (Enulose) 40 gm Q2 PO ; Start 07/09/16 at 13:00; Stop 07/10/16 at 10: 00 Miscellaneous Information (*Rx Drug Level Order Reminder*) VANCOMYCIN TROUGH LEVEL... ONCE ONCE XX ; Start 07/10/16 at 03:00; Stop 07/10/16 at 03:01 MARY ZAVALETA MD July 09, 2016 16:29
[2016-07-09] MEDS ORDERED: MAGNESIUM CITRATE 300 ML BTL PO ONE (17:30)
[2016-07-09] MEDS: HYDROmorphONE 1 MG/ML SYG IV PRN (22:01)
[2016-07-10] VITALS (13 sets, daily range): BP systolic 95–145; BP diastolic 56–74; PULSE 48–88; RESP 16–20
[2016-07-10 03:12] LABS: ADD SCAN DIFF NO
[2016-07-10 03:14] LABS: BASOPHILS % 0.7 % (0.0-2.0); EOSINOPHILS % 0.4 % (0.0-7.0); HEMOGLOBIN 10.1 g/dl (12.0-16.0); LYMPHOCYTES # 1.4 10^3/ul (0.8-2.9); LYMPHOCYTES % 30.4 % (15.0-51.0); MEAN CORPUSCULAR HEMOGLOBIN 28.2 pg (29.0-33.0); MEAN CORPUSCULAR HGB CONC 33.7 g/dl (32.0-37.0); MEAN CORPUSCULAR VOLUME 83.8 fl (82.0-101.0); MEAN PLATELET VOLUME 10.3 fl (7.4-10.4); MONOCYTE # 0.5 10^3/ul (0.3-0.9); MONOCYTES % 11.9 % (0.0-11.0); NEUTROPHIL # 2.5 10^3/ul (1.6-7.5); NEUTROPHILS % 55.9 % (39.0-77.0); PLATELET COUNT 252 10^3/UL (140-415); RED BLOOD COUNT 3.58 10^6/ul (4.20-5.40); RED CELL DISTRIBUTION WIDTH 16.1 % (11.5-14.5); WHITE BLOOD COUNT 4.5 10^3/ul (4.8-10.8)
[2016-07-10 03:30] LABS: POTASSIUM 3.1 mmol/L (3.5-5.1)
[2016-07-10 03:33] LABS: CREATININE 0.76 mg/dl (0.44-1.00)
[2016-07-10 03:34] LABS: CALCIUM 8.4 mg/dl (8.4-10.2)
[2016-07-10 03:58] LABS: MAGNESIUM 2.3 mg/dl (1.7-2.5); PHOSPHORUS 4.1 mg/dl (2.5-4.9)
[2016-07-10] MEDS ORDERED: VANCOMYCIN 1 GM in NS 250 ML IVPB SCH ×2 (04:00→16:00)
[2016-07-10] MEDS: VANCOMYCIN 750 MG in SOD CHLORIDE 0.9% 150 ML IVPB SCH (04:11)
[2016-07-10] MEDS: PANTOPRAZOLE 40 MG INJ IV SCH ×2 (05:29→17:45)
[2016-07-10] MEDS ORDERED: POLYETHYLENE GLYCOL 3350 119 GM POWDER PO ONE (06:00)
[2016-07-10] MEDS: SOD CHLORIDE 0.9% 1,000 ML IV SCH ×2 (06:00→08:55)
[2016-07-10] MEDS ORDERED: BISACODYL (EC) 5 MG TAB PO ONE (08:00)
[2016-07-10] MEDS: CEFTRIAXONE 1 GM/50 ML (PMX) 50 ML IVPB SCH (08:56)
[2016-07-10] MEDS: NYSTATIN SUSP 5 ML CUP PO SCH ×4 (08:57→21:00)
[2016-07-10] MEDS ORDERED: SOD CHLORIDE 0.9% 100 ML ONE (09:15)
[2016-07-10] MEDS ORDERED: IOHEXOL 300MG/ML 150 ML BTL ONE (09:15)
--- NOTE | 2016-07-10 09:50 | CONS ---
Date/Time of Note Date/Time of Note DATE: 07/10/16 TIME: 09:49 Assessment/Plan Assessment/Plan Chief Complaint/Hosp Course The patient is a 50 year old female with recurrent SCC of right oral tongue s/p right tongue partial glossectomy 11/21/15 pT2N0 s/p incomplete xrt 2/2 noncompliance, now with N3 LN left submandibular/posterior auricular LN, biopsy proven SCC, without distant mets on PET/CT, s/p cycle 2 induction chemotherapy with TPF chemotherapy (docetaxel, cisplatin, 5FU) on 06/18/16 with significant response to chemotherapy, no admitted for hypotension, symptomatic anemia, possible UTI. - Appreciate recommendations from Dr. Preston Potter. Awaiting CT read to evaluate response to induction chemotherapy. Plan for Dr. Preston Brewer of ENT to evaluate as outpatient - appointment scheduled for 07/13/16 at 1 p.m.. Consider surgery first follow by post-op radiation therapy. - Patient s/p 2 units pRBC for symptomatic anemia with Hgb 7.2, now stable at 10. Anemia likely related to chemotherapy however patient also notes blood in stool when wipes. FOBT pending. Patient status post esophagogastroduodenoscopy and colonoscopy , where colonoscopy was inadequate secondary to poor preparation, EGD revealed erosive esophagitis and mild gastritis on PPI. Plan for repeat colonoscopy. f/u path report - coagulase-negative Staphylococcus bacteremia, likely contaminant, although possibility of line sepsis needs to be excluded per ID. Positive urinalysis on admission with urine culture consistent with contaminant per ID. Plan to repeat blood cultures from Port-A-Cath. Repeat urine cultures. Continue on current antibiotics of vanc and ceftriaxone for now. A - repeat coags WNL - Nystatin swish and swallow added for thrush - Physical therapy evaluation given weakness - Continue IV fluids. BP, HR improved since admission. Problems: Consultation Date/Type/Reason Admit Date/Time July 07, 2016 at 21:39 Initial Consult Date 07/08/16 Type of Consultation: Oncology Referring Provider: CARLOS JOHN NP 24 HR Interval Summary Free Text/Dictation Patient has no complaints, just fatigued. Exam/Review of Systems Vital Signs Vitals Vital Signs Date Time Temp Pulse Resp B/P Pulse Ox O2 Delivery O2 Flow Rate FiO2 07/10/16 08:01 56 07/10/16 07:21 97.6 18 125/74 96 07/09/16 13:00 Nasal Cannula 2.0 Intake and Output 07/09/16 07/09/16 07/10/16 15:00 23:00 07:00 Intake Total 850 ml 2000 ml 600 ml Balance 850 ml 2000 ml 600 ml Exam Constitutional: alert, frail, oriented Psych: no complaints Head: normocephalic Eyes: nl conjunctiva Neck: non-tender, supple Respiratory: clear to auscultation Cardiovascular: regular rate and rhythm Gastrointestinal: non-tender, soft Genitourinary - Female: nl adnexae Musculoskeletal: nl extremities to inspection Results Result Diagram: 07/10/16 0300 07/10/16 0300 Results 24 hrs Laboratory Tests Test 07/10/16 03:00 White Blood Count 4.5 L Red Blood Count 3.58 L Hemoglobin 10.1 L Hematocrit 30.0 L Mean Corpuscular Volume 83.8 Mean Corpuscular Hemoglobin 28.2 L Mean Corpuscular Hemoglobin Concent 33.7 Red Cell Distribution Width 16.1 H Platelet Count 252 Mean Platelet Volume 10.3 Neutrophils % 55.9 Lymphocytes % 30.4 Monocytes % 11.9 H Eosinophils % 0.4 Basophils % 0.7 Nucleated Red Blood Cells % 0.0 Neutrophils # 2.5 Lymphocytes # 1.4 Monocytes # 0.5 Eosinophils # 0.0 Basophils # 0.0 Nucleated Red Blood Cells # 0.0 Sodium Level 139 Potassium Level 3.1 L Chloride Level 102 Carbon Dioxide Level 26 Anion Gap 14 Blood Urea Nitrogen 10 Creatinine 0.76 Glucose Level 90 Calcium Level 8.4 Phosphorus Level 4.1 Magnesium Level 2.3 Vancomycin Level Trough 10.7 Medications Medications Current Medications Hydromorphone HCl (Dilaudid) 1 mg Q4H PRN IV PAIN Last administered on t 22:01; Admin Dose 1 MG; Start 07/08/16 at 00:30 Acetaminophen (Tylenol Tab) 650 mg Q6H PRN PO PAIN LEVEL 1-3 OR FEVER; Start at 04:00 Acetaminophen (Tylenol Supp) 650 mg Q6H PRN [place] PAIN LEVEL 1-3 OR FEVER; Start 07/08/16 at 04:00 Docusate Sodium (Colace) 100 mg Q12H PRN PO CONSTIPATION; Start 07/08/16 at 04: 00 Bisacodyl 5 mg 5 mg DAILY PRN PO CONSTIPATION; Start 07/08/16 at 04:00 Sodium Chloride 1,000 ml @ 80 mls/hr [id number] IV Last administered on 08:55; Admin Dose 80 MLS/HR; Start 07/08/16 at 04:00 Ceftriaxone Sodium (Rocephin) 50 ml @ 100 mls/hr Q24H IVPB Last administered on 07/10/16 08:56; Admin Dose 100 MLS/HR; Start 07/08/16 at 11:00 Pantoprazole (Protonix Iv) 40 mg BID@06,18 IV Last administered on 07/10/16 05 :29; Admin Dose 40 MG; Start 07/08/16 at 18:00 Nystatin (Nystatin Susp) 5 ml QID PO Last administered on 07/10/16 08:57; Admin Dose 5 ML; Start 07/08/16 at 17:00 Ondansetron HCl 4 mg 4 mg Q4H PRN IV NAUSEA AND/OR VOMITING; Start 07/09/16 at 20:00 Vancomycin HCl (Vancocin) 250 ml @ 125 mls/hr Q12H IVPB ; Start 07/10/16 at 16: 00 MARY ZAVALETA MD July 10, 2016 09:50
--- NOTE | 2016-07-10 10:20 | RADRPT ---
PROCEDURE: CT soft tissue neck with contrast. CLINICAL INDICATION: History of tongue cancer and right glossectomy 11/18/2015 and chemotherapy.. Recurrence on the contralateral side. Staging evaluation. TECHNIQUE: The study was performed utilizing a multidetector CT scanner. Direct thin section helic ally acquired axial sections were obtained through the neck without contrast. Coronal and sagittal reformations were obtained. 80 ml Omnipaque-300 was administered without complication. The total CT DIvol is 8.43 mGy and the DLP is 234.57 mGy-cm. One or more of the following dose reduction techniqu es were utilized: Automated exposure control, adjustment of the mA and/or kV according to patient s ize, use of iterative reconstruction technique. COMPARISON: No prior studies are available for comparison. FINDINGS: The visualized intracranial contents, paranasal sinuses, and orbits are unremarkable. Postoperative changes of the right and midline submandibular and submental region compatible with kn own prior partial right glossectomy. Mild fascial thickening and thickening of the platysma muscle are noted on the right compatible with postoperative change. The right submandibular gland is surgic ally absent. Left tongue with ill-defined area of hypo attenuation measuring 3.2 x 1.3 x 2.3 cm (AP /TR/CC) extending to the base of the tongue on the left best visualized on coronal image (601 [phone] 32). This displaces the tongue to the right and mylohyoid muscle laterally. These findings are suspici ous for the area of known contralateral recurrence . Correlate with findings of direct inspection. Bilobed hypodense mass along the deep medial aspect of the proximal sternocleidomastoid muscle just below the mastoid tip measuring 3 x 1.2 x 4.2 cm (AP/TR/CC ) contiguous with the more inferior porti on of the hypodense mass extending the anterior margin of the left sternocleidomastoid muscle measur ing 2.7 x 1.6 x 3.7 cm (AP/TR/CC. The mass is inseparable from the sternocleidomastoid muscle and may reflect intramuscular hematoma o r metastatic lesion. Sarcomatous lesion is considered less likely. Ultrasound and or PET CT may be considered for further evaluation. The nasopharynx, tonsillar pillars, oropharynx, parapharyngeal spaces, hypopharynx, and larynx are all normal in appearance. Normal appearance of the false and true vocal cords. The thyroid gland is normal in size with no focal mass lesions seen. The left submandibular and parotid glands are unremarkable and normal in appearance. No pathologic ally enlarged lymph nodes are detected. No gross vascular abnormality. No osteolytic or blastic lesi on is evident. Nodular and pleuroparenchymal density in the posterior right apex medially with left apical subpleur al scarring. The lung apices are otherwise clear. IMPRESSION: 1. Ill-defined hypodense region along the left lateral and base of tongue suspicious for residual/r ecurrent tumor as described above. Postoperative changes of the right submental and submandibular r egion with resection of the right submandibular gland. Correlate with direct visualization and/or bi opsy findings. 2. Bilobed hypodense mass along the deep medial superior and anterior inferior margin of the left s ternocleidomastoid muscle. This may represent intramuscular hematoma or mass. Metastatic lesion ca nnot be excluded. Further evaluation with ultrasound and/or MRI may be considered for further aravind cterization. PET CT is recommended to exclude neoplastic process. 3. No bulky adenopathy. 4. No lytic or blastic osseous lesion. 5. Subpleural nodular densities and pleuroparenchymal scarring at the lung apices bilaterally. RPTAT:AAJJ Physician Shyam Date Time Electronically viewed and signed by Physician Shyam on 07/10/2016 10:19 STEVE/
[2016-07-10] MEDS ORDERED: POTASSIUM CHLORIDE 250 ML IVPB ONE (11:00)
[2016-07-10] MEDS: ONDANSETRON 4 MG INJ IV PRN ×2 (11:45→17:45)
[2016-07-10] MEDS: HYDROmorphONE 1 MG/ML SYG IV PRN ×3 (11:45→23:04)
--- NOTE | 2016-07-10 15:20 | PN ---
Date/Time of Note Date/Time of Note DATE: 07/10/16 TIME: 15:20 Assessment/Plan VTE Prophylaxis VTE Prophylaxis Intervention: SCD's Lines/Catheters IV Catheter Type (from [facility], [place]): Saline Lock Urinary Cath still in place: No Assessment/Plan Chief Complaint/Hosp Course 1. Symptomatic anemia. Most likely secondary to acute blood loss. Status post 2 units of packed red blood cell transfusion. The patient was evaluated by gastroenterology. The patient underwent a esophagogastroduodenoscopy and colonoscopy on 07/09/2016. The esophagogastroduodenoscopy showed mild gastritis and erosive esophagitis. Patient will be continued on proton pump inhibitors. The patient's colonoscopy was in order completed because of poor bowel preparation 2. Presyncope on 07/10/2016. Will obtain cardiology evaluation. Will obtain 2D echocardiogram. 3. Tongue cancer. The patient is being followed by oncology. Management as per oncology. 4. Gram-positive bacteremia. The patient is being followed by infectious diseases. Continue antibiotics. No evidence of any septic shock. Repeat blood cultures 2 negative. 5. Fluid, electrolytes and nutrition. Regular diet. 6. Deep venous thrombosis prophylaxis. Bilateral sequential compression devices. 7. Gastrointestinal prophylaxis. Proton pump inhibitors PLAN: Continue antibiotics. Replete potassium. Obtain a CT scan of the brain. Obtain 2D echocardiogram. Obtain cardiology evaluation. Case discussed with Dr. Castro. Problems: Subjective 24 Hr Interval Summary Free Text/Dictation The patient had an episode of severe headache in the morning. Patient verbalized that she is feeling very weak. The nurse also reported that the patient almost fell while she was walking with the physical therapist today. Patient verbalized that she felt like her legs were going to "give up." The patient was noticed to have some bradycardia. Exam/Review of Systems Vital Signs Vitals Vital Signs Date Time Temp Pulse Resp B/P Pulse Ox O2 Delivery O2 Flow Rate FiO2 07/10/16 12:42 58 07/10/16 11:52 145/72 07/10/16 11:39 98.4 18 98 07/09/16 13:00 Nasal Cannula 2.0 Intake and Output 07/09/16 07/09/16 07/10/16 15:00 23:00 07:00 Intake Total 850 ml 2000 ml 600 ml Balance 850 ml 2000 ml 600 ml Exam VITAL SIGNS: Temperature 98.0, pulse rate 71, respiratory rate 18, blood pressure 115/58, oxygen saturation 98% on room air. GENERAL: This is a 50-year-old female patient lying in bed in no apparent distress. HEENT: Head normocephalic. Alopecia noted. Eyes: Anicteric sclerae. Conjunctivae clear. ENT: Nasal septum is midline. Oral mucosa is dry. NECK: Supple. No JVD noticed. RESPIRATORY: Bilaterally clear to auscultation. No adventitious breath sounds. No use of accessory muscles of respiration. CARDIOVASCULAR: S1, S2 heard. GASTROINTESTINAL: Abdomen soft, nontender, nondistended. Bowel sounds positive in all 4 quadrants. GENITOURINARY: Deferred. EXTREMITIES: No cyanosis, no clubbing, no edema. Peripheral pulses are palpable. NEUROLOGIC: The patient is awake, alert and oriented. Cranial nerves are grossly intact. Results Result Diagram: 07/10/16 0300 07/10/16 0300 Results 24 hrs Laboratory Tests Test 07/10/16 03:00 White Blood Count 4.5 L Red Blood Count 3.58 L Hemoglobin 10.1 L Hematocrit 30.0 L Mean Corpuscular Volume 83.8 Mean Corpuscular Hemoglobin 28.2 L Mean Corpuscular Hemoglobin Concent 33.7 Red Cell Distribution Width 16.1 H Platelet Count 252 Mean Platelet Volume 10.3 Neutrophils % 55.9 Lymphocytes % 30.4 Monocytes % 11.9 H Eosinophils % 0.4 Basophils % 0.7 Nucleated Red Blood Cells % 0.0 Neutrophils # 2.5 Lymphocytes # 1.4 Monocytes # 0.5 Eosinophils # 0.0 Basophils # 0.0 Nucleated Red Blood Cells # 0.0 Sodium Level 139 Potassium Level 3.1 L Chloride Level 102 Carbon Dioxide Level 26 Anion Gap 14 Blood Urea Nitrogen 10 Creatinine 0.76 Glucose Level 90 Calcium Level 8.4 Phosphorus Level 4.1 Magnesium Level 2.3 Vancomycin Level Trough 10.7 Medications Medications Current Medications Hydromorphone HCl (Dilaudid) 1 mg Q4H PRN IV PAIN Last administered on t 11:45; Admin Dose 1 MG; Start 07/08/16 at 00:30 Acetaminophen (Tylenol Tab) 650 mg Q6H PRN PO PAIN LEVEL 1-3 OR FEVER; Start at 04:00 Acetaminophen (Tylenol Supp) 650 mg Q6H PRN [place] PAIN LEVEL 1-3 OR FEVER; Start 07/08/16 at 04:00 Docusate Sodium (Colace) 100 mg Q12H PRN PO CONSTIPATION; Start 07/08/16 at 04: 00 Bisacodyl 5 mg 5 mg DAILY PRN PO CONSTIPATION; Start 07/08/16 at 04:00 Sodium Chloride 1,000 ml @ 80 mls/hr [id number] IV Last administered on 08:55; Admin Dose 80 MLS/HR; Start 07/08/16 at 04:00 Ceftriaxone Sodium (Rocephin) 50 ml @ 100 mls/hr Q24H IVPB Last administered on 07/10/16 08:56; Admin Dose 100 MLS/HR; Start 07/08/16 at 11:00 Pantoprazole (Protonix Iv) 40 mg BID@06,18 IV Last administered on 07/10/16 05 :29; Admin Dose 40 MG; Start 07/08/16 at 18:00 Nystatin (Nystatin Susp) 5 ml QID PO Last administered on 07/10/16 11:43; Admin Dose 5 ML; Start 07/08/16 at 17:00 Ondansetron HCl 4 mg 4 mg Q4H PRN IV NAUSEA AND/OR VOMITING Last administered on 07/10/16 11:45; Admin Dose 4 MG; Start 07/09/16 at 20:00 Vancomycin HCl (Vancocin) 250 ml @ 125 mls/hr Q12H IVPB ; Start 07/10/16 at 16: 00 CARLOS JOHN NP July 10, 2016 15:20
--- NOTE | 2016-07-10 18:06 | PN ---
Date/Time of Note Date/Time of Note DATE: 07/10/16 TIME: 18:00 Assessment/Plan VTE Prophylaxis VTE Prophylaxis Intervention: SCD's Lines/Catheters [facility] Saline Lock Urinary Cath still in place: No Assessment/Plan Assessment/Plan Assessment Anemia EGD Erosive esophagitis/Gastritis Hematochezia Inadequate colonoscopy due to poor prep/ Patient refuses colonoscopy History of chemotherapy sec to tongue cancer Plan Continue present management Will follow Subjective 24 Hr Interval Summary Free Text/Dictation Course reviewed Patient refused repeat prep and colonoscopy Exam/Review of Systems Vital Signs Vitals Vital Signs Date Time Temp Pulse Resp B/P Pulse Ox O2 Delivery O2 Flow Rate FiO2 07/10/16 16:29 60 07/10/16 15:54 97.6 17 133/63 94 07/09/16 13:00 Nasal Cannula 2.0 Intake and Output 07/09/16 07/09/16 07/10/16 15:00 23:00 07:00 Intake Total 850 ml 2000 ml 600 ml Balance 850 ml 2000 ml 600 ml Exam Constitutional: alert, oriented, well developed Head: atraumatic, normocephalic Neck: non-tender, supple Respiratory: clear to auscultation, normal air movement Cardiovascular: nl pulses, regular rate and rhythm Gastrointestinal: nl liver, spleen, non-tender, soft Musculoskeletal: nl extremities to inspection Results Result Diagram: 07/10/16 0300 07/10/16 0300 Results 24 hrs Laboratory Tests Test 07/10/16 03:00 White Blood Count 4.5 L Red Blood Count 3.58 L Hemoglobin 10.1 L Hematocrit 30.0 L Mean Corpuscular Volume 83.8 Mean Corpuscular Hemoglobin 28.2 L Mean Corpuscular Hemoglobin Concent 33.7 Red Cell Distribution Width 16.1 H Platelet Count 252 Mean Platelet Volume 10.3 Neutrophils % 55.9 Lymphocytes % 30.4 Monocytes % 11.9 H Eosinophils % 0.4 Basophils % 0.7 Nucleated Red Blood Cells % 0.0 Neutrophils # 2.5 Lymphocytes # 1.4 Monocytes # 0.5 Eosinophils # 0.0 Basophils # 0.0 Nucleated Red Blood Cells # 0.0 Sodium Level 139 Potassium Level 3.1 L Chloride Level 102 Carbon Dioxide Level 26 Anion Gap 14 Blood Urea Nitrogen 10 Creatinine 0.76 Glucose Level 90 Calcium Level 8.4 Phosphorus Level 4.1 Magnesium Level 2.3 Vancomycin Level Trough 10.7 Medications Medications Current Medications Hydromorphone HCl (Dilaudid) 1 mg Q4H PRN IV PAIN Last administered on 17:45; Admin Dose 1 MG; Start 07/08/16 at 00:30 Acetaminophen (Tylenol Tab) 650 mg Q6H PRN PO PAIN LEVEL 1-3 OR FEVER; Start at 04:00 Acetaminophen (Tylenol Supp) 650 mg Q6H PRN [place] PAIN LEVEL 1-3 OR FEVER; Start 07/08/16 at 04:00 Docusate Sodium (Colace) 100 mg Q12H PRN PO CONSTIPATION; Start 07/08/16 at 04: 00 Bisacodyl 5 mg 5 mg DAILY PRN PO CONSTIPATION; Start 07/08/16 at 04:00 Sodium Chloride 1,000 ml @ 80 mls/hr [id number] IV Last administered on 08:55; Admin Dose 80 MLS/HR; Start 07/08/16 at 04:00 Ceftriaxone Sodium (Rocephin) 50 ml @ 100 mls/hr Q24H IVPB Last administered on 07/10/16 08:56; Admin Dose 100 MLS/HR; Start 07/08/16 at 11:00 Pantoprazole (Protonix Iv) 40 mg BID@06,18 IV Last administered on 07/10/16 17 :45; Admin Dose 40 MG; Start 07/08/16 at 18:00 Nystatin (Nystatin Susp) 5 ml QID PO Last administered on 07/10/16 17:45; Admin Dose 5 ML; Start 07/08/16 at 17:00 Ondansetron HCl 4 mg 4 mg Q4H PRN IV NAUSEA AND/OR VOMITING Last administered on 07/10/16 17:45; Admin Dose 4 MG; Start 07/09/16 at 20:00 Vancomycin HCl (Vancocin) 250 ml @ 125 mls/hr Q12H IVPB Last administered on 17:45; Admin Dose 125 MLS/HR; Start 07/10/16 at 16:00 REESE CARLTON MD July 10, 2016 18:06
--- NOTE | 2016-07-10 18:37 | CONS ---
Date/Time of Note Date/Time of Note DATE: 07/10/16 TIME: 18:34 Assessment/Plan Assessment/Plan Chief Complaint/Hosp Course SUBJECTIVE: No acute changes. The patient is lying comfortably in bed. No fevers. MICROBIOLOGY: Blood culture growing staph species. Urine culture grew lactobacillus species, both susceptible to contaminant. Repeat bld cx negative ANTIMICROBIALS: The patient is on: 1. IV vancomycin. 2. Rocephin. DIAGNOSTICS: Chest x-ray revealed no acute cardiopulmonary disease. INDWELLINGS: Right Port-A-Cath. PHYSICAL EXAMINATION: GENERAL: This is a well-developed, well-nourished woman who is awake, in no distress. HEENT: Head atraumatic, normocephalic. Sclerae anicteric. Buccal mucosa dry. NECK: Supple. CHEST: Rise symmetrical. Breath sounds diminished to bases. HEART: S1, S2. ABDOMEN: Soft. Bowel sounds present. EXTREMITIES: Without cyanosis. ASSESSMENT: 1. Coagulase-negative Staphylococcus bacteremia, cw contaminant==> repeat bld cx negative 2. Generalized weakness. 3. History of tongue cancer, status post chemoradiation and surgical intervention. 4. Anemia, status post esophagogastroduodenoscopy and colonoscopy today, where colonoscopy was inadequate secondary to poor preparation, EGD revealed erosive esophagitis and mild gastritis. 5. Positive urinalysis on admission with urine culture consistent with contaminant. PLAN: Stable, repeat bld cx negative, no fevers, will dc abx and observe. Oncology/GI rec-s JOVI RN Problems: Consultation Date/Type/Reason Admit Date/Time July 07, 2016 at 21:39 Initial Consult Date 07/08/16 Type of Consultation: ID Referring Provider: CARLOS JOHN SHIPPING AND RECEIVING COORDINATOR Exam/Review of Systems Vital Signs Vitals Vital Signs Date Time Temp Pulse Resp B/P Pulse Ox O2 Delivery O2 Flow Rate FiO2 07/10/16 16:29 60 07/10/16 15:54 97.6 17 133/63 94 07/09/16 13:00 Nasal Cannula 2.0 Intake and Output 07/09/16 07/09/16 07/10/16 14:59 22:59 06:59 Intake Total 850 ml 2000 ml 600 ml Balance 850 ml 2000 ml 600 ml Results Result Diagram: 07/10/16 0300 07/10/16 0300 Results 24 hrs Laboratory Tests Test 07/10/16 03:00 White Blood Count 4.5 L Red Blood Count 3.58 L Hemoglobin 10.1 L Hematocrit 30.0 L Mean Corpuscular Volume 83.8 Mean Corpuscular Hemoglobin 28.2 L Mean Corpuscular Hemoglobin Concent 33.7 Red Cell Distribution Width 16.1 H Platelet Count 252 Mean Platelet Volume 10.3 Neutrophils % 55.9 Lymphocytes % 30.4 Monocytes % 11.9 H Eosinophils % 0.4 Basophils % 0.7 Nucleated Red Blood Cells % 0.0 Neutrophils # 2.5 Lymphocytes # 1.4 Monocytes # 0.5 Eosinophils # 0.0 Basophils # 0.0 Nucleated Red Blood Cells # 0.0 Sodium Level 139 Potassium Level 3.1 L Chloride Level 102 Carbon Dioxide Level 26 Anion Gap 14 Blood Urea Nitrogen 10 Creatinine 0.76 Glucose Level 90 Calcium Level 8.4 Phosphorus Level 4.1 Magnesium Level 2.3 Vancomycin Level Trough 10.7 Medications Medications Current Medications Hydromorphone HCl (Dilaudid) 1 mg Q4H PRN IV PAIN Last administered on 17:45; Admin Dose 1 MG; Start 07/08/16 at 00:30 Acetaminophen (Tylenol Tab) 650 mg Q6H PRN PO PAIN LEVEL 1-3 OR FEVER; Start at 04:00 Acetaminophen (Tylenol Supp) 650 mg Q6H PRN [place] PAIN LEVEL 1-3 OR FEVER; Start 07/08/16 at 04:00 Docusate Sodium (Colace) 100 mg Q12H PRN PO CONSTIPATION; Start 07/08/16 at 04: 00 Bisacodyl 5 mg 5 mg DAILY PRN PO CONSTIPATION; Start 07/08/16 at 04:00 Sodium Chloride 1,000 ml @ 80 mls/hr [id number] IV Last administered on 08:55; Admin Dose 80 MLS/HR; Start 07/08/16 at 04:00 Ceftriaxone Sodium (Rocephin) 50 ml @ 100 mls/hr Q24H IVPB Last administered on 07/10/16 08:56; Admin Dose 100 MLS/HR; Start 07/08/16 at 11:00 Pantoprazole (Protonix Iv) 40 mg BID@06,18 IV Last administered on 07/10/16 17 :45; Admin Dose 40 MG; Start 07/08/16 at 18:00 Nystatin (Nystatin Susp) 5 ml QID PO Last administered on 07/10/16 17:45; Admin Dose 5 ML; Start 07/08/16 at 17:00 Ondansetron HCl 4 mg 4 mg Q4H PRN IV NAUSEA AND/OR VOMITING Last administered on 07/10/16 17:45; Admin Dose 4 MG; Start 07/09/16 at 20:00 Vancomycin HCl (Vancocin) 250 ml @ 125 mls/hr Q12H IVPB Last administered on 17:45; Admin Dose 125 MLS/HR; Start 07/10/16 at 16:00 LJ DOWELL NP July 10, 2016 18:37
[2016-07-10] MEDS ORDERED: NITR0.3T6 PO (23:40)
[2016-07-10] MEDS ORDERED: NPH,100I5 SQ (23:40)
[2016-07-10] MEDS ORDERED: ONDA-43 PO (23:40)
[2016-07-10] MEDS ORDERED: imdur PO (23:40)
[2016-07-11] VITALS (9 sets, daily range): BP systolic 110–148; BP diastolic 61–82; PULSE 55–77; RESP 14–18
[2016-07-11] MEDS: HYDROmorphONE 1 MG/ML SYG IV PRN ×3 (03:16→12:42)
--- NOTE | 2016-07-11 04:21 | CONS ---
DATE OF ADMISSION: 07/07/2016 DATE OF CONSULTATION: 07/10/2016 REASON FOR CONSULTATION: Presyncope and bradycardia. REQUESTING PHYSICIAN: Haim Bright PROCESS TRAINER, from the hospitalist service. HISTORY OF PRESENT ILLNESS: Ms. Horvath is a 50-year-old female with a history of tongue cancer und ergoing chemotherapy who initially presented with hypotension, associated dizziness, weakness after receiving a second round of chemotherapy from her primary oncologist's office. Initially upon arriv al, temperature 97.8, blood pressure show 86/51, pulse 90, respiratory rate 18, saturating 100%. e patient's labs revealed a white blood count 8.6, hemoglobin 7.2, platelet count 267. Sodium 138, potassium 3.6, creatinine 0.85, BUN 15, AST 26, ALT 28. Troponin negative. INR of 1.0. UA borderl ine positive. The patient underwent a chest x-ray, revealing no acute cardiopulmonary disease, and a neck CT revealing ill-defined hypodense region along the left lateral and base of tongue suspiciou s for residual or recurrent tumor, hypodense mass along the deep anteroinferior margin of the left sternocleidomastoid muscle, no bulky adenopathy, no lytic or blastic lesions. The patie nt's electrocardiogram revealed normal sinus rhythm at a rate of 67, normal axis, normal intervals w ith nonspecific ST abnormalities. Patient was subsequently admitted to the floor and was seen by e ID and GI services and underwent EGD and colonoscopy, revealing mild gastritis and erosive esophag itis. The patient has been placed on broad spectrum antibiotics after having initial blood culture positive for coag-negative staph. The patient today was working with physical therapy and states at she began to feel dizzy and is unsure if she passed out or not. She remembers hearing the therap ist scream and then felt like her head fell back but then was caught. During this time, the patient has been monitored on telemetry with some episodes of heart rates in the high 40s but relatively st able blood pressures. The patient at this time denies chest pain, shortness of breath or prior card iac pathophysiology. PAST MEDICAL HISTORY: As above in HPI. MEDICATIONS CURRENTLY IN HOSPITAL: 1. Vancomycin. 2. Zofran p.r.n. 3. Protonix 40 mg IV b.i.d. 4. Ceftriaxone. 5. Tylenol. 6. Colace. 7. Dulcolax. 8. IV fluid hydration at 80 mL an hour. 9. Dilaudid. ALLERGIES: NO KNOWN DRUG ALLERGIES. SOCIAL HISTORY: No tobacco, ETOH or illicit drug use. FAMILY HISTORY: No history of sudden cardiac or early CAD. REVIEW OF SYSTEMS: As above in HPI. CONSTITUTIONAL: No fevers, chills. PULMONARY: No current shortness of breath. CARDIOVASCULAR: No current chest pain. GASTROINTESTINAL: No vomiting. GENITOURINARY: No hematuria. MUSCULOSKELETAL: Degenerative joint disease. PSYCHIATRIC: The patient denies depression. NEUROLOGIC: No documented history of CVA. ENDOCRINE: No documented history of diabetes mellitus or thyroid disease. PHYSICAL EXAMINATION: VITAL SIGNS: Temperature 97.6, blood pressure most recently 133/63, pulse in the 50s to 60s. NECK: No jugular venous distention. CHEST: Fair air movement throughout. HEART: Regular rate and rhythm. Normal S1, S2, I/ systolic murmur, nondisplaced PMI. ABDOMEN: Positive bowel sounds, soft. EXTREMITIES: No pitting edema, 1+ pulses bilaterally, posterior tibial. LABORATORY DATA: As above in HPI, with most recent from today, sodium 139, potassium 3.1, creatinin e 0.7, BUN 10, magnesium 2.3, hemoglobin 10.1, white blood count 4.5, platelet count 252. INR 0.92. IMAGING STUDIES: As above in HPI. No further imaging studies for my review at this time. ECG: As above in HPI. No further electrocardiograms for my review at this time. IMPRESSION: 1. Presyncope, rule out cardiac etiology. Rule out significant bradyarrhythmias. 2. Bradycardia to a low of 48. 3. Hypertension, labile. 4. Oral cancer with tongue cancer. 5. Possible bacteremia. 6. Urinary tract infection. 7. Anemia, status post transfusions. 8. Gastritis by EGD and erosive esophagitis. 9. Hypokalemia. RECOMMENDATIONS: 1. At this time, would maintain the patient on telemetry monitoring to follow rhythm and rate contr ol closely. 2. Check a TSH to be sure subclinical hypothyroidism is not contributing to bouts of bradyarrhythmi as and complete the patient's workup for infarction, ensure that the patient's presyncopal episode i s not due to any coronary syndrome such as acute myocardial infarction. 3. Check a 2D echocardiogram to further assess patient's ejection fraction, wall motion and any smita or valve abnormalities. 4. Check a fasting lipid panel for general risk stratification and initiate on lipid-lowering medic ation as necessary. 5. Replete the patient's potassium as you are doing. 6. Continue the patient's antibiotics and follow up all culture data. Thank you for allowing me to take part in the care of this patient. I will continue to follow along very closely with you and further recommendations to be made as the patient progresses through [facility] clinical course. Dictated By: ABRAHAM ESCOTO/EMMANUEL Conf#: [id number] DID#: [id number] CC: HAIM BRIGHT NP; RODOLFO DAVIS MD;*End*
[2016-07-11] MEDS: SOD CHLORIDE 0.9% 1,000 ML IV SCH ×2 (06:07→18:28)
[2016-07-11] MEDS: PANTOPRAZOLE 40 MG INJ IV SCH ×2 (06:07→17:41)
[2016-07-11 07:26] LABS: ADD SCAN DIFF NO
[2016-07-11 07:29] LABS: BASOPHILS % 0.6 % (0.0-2.0); EOSINOPHILS % 0.6 % (0.0-7.0); HEMATOCRIT 30.9 % (37.0-47.0); HEMOGLOBIN 10.1 g/dl (12.0-16.0); LYMPHOCYTES # 1.5 10^3/ul (0.8-2.9); LYMPHOCYTES % 28.9 % (15.0-51.0); MEAN CORPUSCULAR HGB CONC 32.7 g/dl (32.0-37.0); MEAN CORPUSCULAR VOLUME 85.6 fl (82.0-101.0); MEAN PLATELET VOLUME 10.6 fl (7.4-10.4); MONOCYTE # 0.5 10^3/ul (0.3-0.9); MONOCYTES % 8.9 % (0.0-11.0); NEUTROPHIL # 3.1 10^3/ul (1.6-7.5); NEUTROPHILS % 60.4 % (39.0-77.0); PLATELET COUNT 250 10^3/UL (140-415); RED BLOOD COUNT 3.61 10^6/ul (4.20-5.40); RED CELL DISTRIBUTION WIDTH 16.5 % (11.5-14.5); WHITE BLOOD COUNT 5.2 10^3/ul (4.8-10.8)
[2016-07-11 07:54] LABS: CALCIUM 8.7 mg/dl (8.4-10.2); CREATININE 0.81 mg/dl (0.44-1.00); POTASSIUM 3.5 mmol/L (3.5-5.1)
[2016-07-11 07:58] LABS: MAGNESIUM 1.5 mg/dl (1.7-2.5); PHOSPHORUS 4.4 mg/dl (2.5-4.9)
[2016-07-11] MEDS: NYSTATIN SUSP 5 ML CUP PO SCH ×2 (08:06→12:42)
[2016-07-11] MEDS ORDERED: MAGNESIUM SULFATE 2 GM/50 ML 50 ML IVPB ONE (09:00)
--- NOTE | 2016-07-11 09:38 | PN ---
Date/Time of Note Date/Time of Note DATE: 07/11/16 TIME: 09:33 Assessment/Plan VTE Prophylaxis VTE Prophylaxis Intervention: SCD's Lines/Catheters [facility]ter Type (from [facility]): port a cath Urinary Cath still in place: No Assessment/Plan Chief Complaint/Hosp Course Assessment and plan 1. Symptomatic anemia. Suspect secondary to acute blood loss. Of note patient did have good response after 2 units transfusion of PRBC. GI following. Patient did undergo EGD and colonoscopy on July 09, 2016. Per EGD did show some mild gastritis and erosive esophagitis. We will continue her on PPI medication. I doubt colonoscopy noted to be inadequate due to poor prep. No further symptoms of anemia. Monitor for now. 2. Presyncope. Reportedly occurred on July 10, 2016. Cardiology following. Echo is pending. No further reports of syncope at this time. Will monitor for now. 3. Tongue cancer. Continue with oncology recommendations. 4. Gram-positive bacteremia. Continue antibiotics. Of note blood cultures 2 were negative. ABX per ID GERD prophylaxis: PPI DVT Provox: Ascites Disposition and plan: Await echocardiogram result. Discharge when medically stable and cleared by consultants. Physical therapy evaluation pending Discussed plan of care with Dr. Castro Problems: Subjective 24 Hr Interval Summary Free Text/Dictation Appears comfortable at present. Denies any headaches or any hemoptysis/ hematochezia/hematemesis Exam/Review of Systems Vital Signs Vitals Vital Signs Date Time Temp Pulse Resp B/P Pulse Ox O2 Delivery O2 Flow Rate FiO2 07/11/16 08:26 56 07/11/16 07:58 97.7 18 138/61 96 07/09/16 13:00 Nasal Cannula 2.0 Intake and Output 07/10/16 07/10/16 07/11/16 15:00 23:00 07:00 Intake Total 1250 ml 500 ml Balance 1250 ml 500 ml Exam Constitutional: alert, oriented Psych: nl mood/affect Eyes: nl conjunctiva ENMT: other (Noted with slightly abnormal speech secondary to tongue cancer) Neck: non-tender, supple Respiratory: clear to auscultation, normal air movement Cardiovascular: regular rate and rhythm Gastrointestinal: non-tender, soft Musculoskeletal: nl extremities to inspection Extremities: normal pulses Neurological: TRAFFIC CONTROLLER CABLE II-XII intact, nl mental status, nl speech Skin: nl turgor Results Result Diagram: 07/11/16 0645 07/11/16 0645 Results 24 hrs Laboratory Tests Test 07/11/16 00:37 07/11/16 05:00 07/11/16 06:45 Troponin I < 0.012 < 0.012 Phosphorus Level 4.4 Magnesium Level 1.5 L White Blood Count 5.2 Red Blood Count 3.61 L Hemoglobin 10.1 L Hematocrit 30.9 L Mean Corpuscular Volume 85.6 Mean Corpuscular Hemoglobin 28.0 L Mean Corpuscular Hemoglobin Concent 32.7 Red Cell Distribution Width 16.5 H Platelet Count 250 Mean Platelet Volume 10.6 H Neutrophils % 60.4 Lymphocytes % 28.9 Monocytes % 8.9 Eosinophils % 0.6 Basophils % 0.6 Nucleated Red Blood Cells % 0.0 Neutrophils # 3.1 Lymphocytes # 1.5 Monocytes # 0.5 Eosinophils # 0.0 Basophils # 0.0 Nucleated Red Blood Cells # 0.0 Sodium Level 137 Potassium Level 3.5 Chloride Level 106 Carbon Dioxide Level 27 Anion Gap 8 Blood Urea Nitrogen 8 Creatinine 0.81 Glucose Level 96 Calcium Level 8.7 Medications Medications Current Medications Hydromorphone HCl (Dilaudid) 1 mg Q4H PRN IV PAIN Last administered on 08:06; Admin Dose 1 MG; Start 07/08/16 at 00:30 Acetaminophen (Tylenol Tab) 650 mg Q6H PRN PO PAIN LEVEL 1-3 OR FEVER; Start at 04:00 Acetaminophen (Tylenol Supp) 650 mg Q6H PRN [place] PAIN LEVEL 1-3 OR FEVER; Start 07/08/16 at 04:00 Docusate Sodium (Colace) 100 mg Q12H PRN PO CONSTIPATION; Start 07/08/16 at 04: 00 Bisacodyl 5 mg 5 mg DAILY PRN PO CONSTIPATION; Start 07/08/16 at 04:00 Sodium Chloride (NS) 1,000 ml @ 80 mls/hr [id number] IV Last administered on 07/11 06:07; Admin Dose 80 MLS/HR; Start 07/08/16 at 04:00 Pantoprazole (Protonix Iv) 40 mg BID@06,18 IV Last administered on 07/11/16 06 :07; Admin Dose 40 MG; Start 5/17/17 at 18:00 Nystatin (Nystatin Susp) 5 ml QID PO Last administered on 07/11/16 08:06; Admin Dose 5 ML; Start 07/08/16 at 17:00 Ondansetron HCl 4 mg 4 mg Q4H PRN IV NAUSEA AND/OR VOMITING Last administered on 07/10/16 17:45; Admin Dose 4 MG; Start 07/09/16 at 20:00 Magnesium Sulfate (Magnesium Sulfate 2 Gm/50 ml) 50 ml @ 25 mls/hr ONCE ONCE IVPB ; Start 07/11/16 at 09:00; Stop 07/11/16 at 10:59 JESSICA HALL July 11, 2016 09:38
--- NOTE | 2016-07-11 10:23 | PN ---
Date/Time of Note Date/Time of Note DATE: 07/11/16 TIME: 10:20 Assessment/Plan VTE Prophylaxis VTE Prophylaxis Intervention: SCD's Lines/Catheters [facility] (from [facility] port a cath Urinary Cath still in place: No Assessment/Plan Assessment/Plan Anemia EGD Erosive esophagitis/Gastritis Hematochezia Inadequate colonoscopy due to poor prep/ Patient refuses colonoscopy History of chemotherapy sec to tongue cancer Plan Continue present management Will follow Subjective 24 Hr Interval Summary Free Text/Dictation * Course reviewed with RN * No complaints * Hemoglobin 10.1 Exam/Review of Systems Vital Signs Vitals Vital Signs Date Time Temp Pulse Resp B/P Pulse Ox O2 Delivery O2 Flow Rate FiO2 07/11/16 08:26 56 07/11/16 07:58 97.7 18 138/61 96 07/09/16 13:00 Nasal Cannula 2.0 Intake and Output 07/10/16 07/10/16 07/11/16 15:00 23:00 07:00 Intake Total 1250 ml 500 ml Balance 1250 ml 500 ml Exam Constitutional: alert, oriented Head: normocephalic Neck: non-tender, supple Respiratory: clear to auscultation, normal air movement Cardiovascular: nl pulses, regular rate and rhythm Gastrointestinal: soft Musculoskeletal: nl extremities to inspection, nl gait and stance Results Result Diagram: 07/11/16 0645 07/11/16 0645 Results 24 hrs Laboratory Tests Test 07/11/16 00:37 07/11/16 05:00 07/11/16 06:45 Troponin I < 0.012 < 0.012 Phosphorus Level 4.4 Magnesium Level 1.5 L White Blood Count 5.2 Red Blood Count 3.61 L Hemoglobin 10.1 L Hematocrit 30.9 L Mean Corpuscular Volume 85.6 Mean Corpuscular Hemoglobin 28.0 L Mean Corpuscular Hemoglobin Concent 32.7 Red Cell Distribution Width 16.5 H Platelet Count 250 Mean Platelet Volume 10.6 H Neutrophils % 60.4 Lymphocytes % 28.9 Monocytes % 8.9 Eosinophils % 0.6 Basophils % 0.6 Nucleated Red Blood Cells % 0.0 Neutrophils # 3.1 Lymphocytes # 1.5 Monocytes # 0.5 Eosinophils # 0.0 Basophils # 0.0 Nucleated Red Blood Cells # 0.0 Sodium Level 137 Potassium Level 3.5 Chloride Level 106 Carbon Dioxide Level 27 Anion Gap 8 Blood Urea Nitrogen 8 Creatinine 0.81 Glucose Level 96 Calcium Level 8.7 Medications Medications Current Medications Hydromorphone HCl (Dilaudid) 1 mg Q4H PRN IV PAIN Last administered on 08:06; Admin Dose 1 MG; Start 07/08/16 at 00:30 Acetaminophen (Tylenol Tab) 650 mg Q6H PRN PO PAIN LEVEL 1-3 OR FEVER; Start at 04:00 Acetaminophen (Tylenol Supp) 650 mg Q6H PRN [place] PAIN LEVEL 1-3 OR FEVER; Start 07/08/16 at 04:00 Docusate Sodium (Colace) 100 mg Q12H PRN PO CONSTIPATION; Start 07/08/16 at 04: 00 Bisacodyl 5 mg 5 mg DAILY PRN PO CONSTIPATION; Start 07/08/16 at 04:00 Sodium Chloride (NS) 1,000 ml @ 80 mls/hr [id number] IV Last administered on 07/11 06:07; Admin Dose 80 MLS/HR; Start 07/08/16 at 04:00 Pantoprazole (Protonix Iv) 40 mg BID@06,18 IV Last administered on 07/11/16 06 :07; Admin Dose 40 MG; Start 07/08/16 at 18:00 Nystatin (Nystatin Susp) 5 ml QID PO Last administered on 07/11/16 08:06; Admin Dose 5 ML; Start 07/08/16 at 17:00 Ondansetron HCl 4 mg 4 mg Q4H PRN IV NAUSEA AND/OR VOMITING Last administered on 07/10/16 17:45; Admin Dose 4 MG; Start 07/09/16 at 20:00 Magnesium Sulfate (Magnesium Sulfate 2 Gm/50 ml) 50 ml @ 25 mls/hr ONCE ONCE IVPB ; Start 07/11/16 at 09:00; Stop 07/11/16 at 10:59 REESE CARLTON MD July 11, 2016 10:23
--- NOTE | 2016-07-11 12:51 | CONS ---
Date/Time of Note Date/Time of Note DATE: 07/11/16 TIME: 12:47 Assessment/Plan Assessment/Plan Additional Assessment/Plan 1. Near Syncope 2. Bradycardia 3. Hypertension 4. Oral cancer with tongue cancer. 5. Urinary tract infection. 6. Anemia, status post transfusions. 7. Gastritis and Erosive esophagitis. 8. Hypokalemia. Hemodynamically Stable Avoid AV Ibrahima Ariel Replete Potassium Continue Protonix Awaiting Echo to r/o LVOT Consultation Date/Type/Reason Admit Date/Time July 07, 2016 at 21:39 Eyes: no complaints ENT: no complaints Respiratory: no complaints Cardiovascular: no complaints Gastrointestinal: flatus, nausea, other (hematocheizia) Genitourinary: no complaints Musculoskeletal: no complaints Skin: no complaints Neurologic: no complaints Endocrine: no complaints Lymphatic: no complaints Psychological: nl mood/affect Immunologic: no complaints Past Medical History Medical History: other (toungue cancer) Past Surgical History Past Surgical Hx: other (toungue surgery) Social History Alcohol Use: rarely Smoking Status: Former smoker (5 cigarettes a day 10 years, quit 1 year ago) Drug Use: none Exam/Review of Systems Vital Signs Vitals Vital Signs Date Time Temp Pulse Resp B/P Pulse Ox O2 Delivery O2 Flow Rate FiO2 07/11/16 12:14 55 07/11/16 11:41 98.5 14 125/77 97 07/09/16 13:00 Nasal Cannula 2.0 Intake and Output 07/10/16 07/10/16 07/11/16 15:00 23:00 07:00 Intake Total 1250 ml 500 ml Balance 1250 ml 500 ml Exam Constitutional: alert, oriented Head: atraumatic, normocephalic Respiratory: clear to auscultation Cardiovascular: regular rate and rhythm Gastrointestinal: nl liver, spleen, non-tender, soft Extremities: normal pulses Results Result Diagram: 07/11/16 0645 07/11/16 0645 Results 24 hrs Laboratory Tests Test 07/11/16 00:37 07/11/16 05:00 07/11/16 06:45 Troponin I < 0.012 < 0.012 Phosphorus Level 4.4 Magnesium Level 1.5 L White Blood Count 5.2 Red Blood Count 3.61 L Hemoglobin 10.1 L Hematocrit 30.9 L Mean Corpuscular Volume 85.6 Mean Corpuscular Hemoglobin 28.0 L Mean Corpuscular Hemoglobin Concent 32.7 Red Cell Distribution Width 16.5 H Platelet Count 250 Mean Platelet Volume 10.6 H Neutrophils % 60.4 Lymphocytes % 28.9 Monocytes % 8.9 Eosinophils % 0.6 Basophils % 0.6 Nucleated Red Blood Cells % 0.0 Neutrophils # 3.1 Lymphocytes # 1.5 Monocytes # 0.5 Eosinophils # 0.0 Basophils # 0.0 Nucleated Red Blood Cells # 0.0 Sodium Level 137 Potassium Level 3.5 Chloride Level 106 Carbon Dioxide Level 27 Anion Gap 8 Blood Urea Nitrogen 8 Creatinine 0.81 Glucose Level 96 Calcium Level 8.7 Medications Medications Current Medications Hydromorphone HCl (Dilaudid) 1 mg Q4H PRN IV PAIN Last administered on 12:42; Admin Dose 1 MG; Start 07/08/16 at 00:30 Acetaminophen (Tylenol Tab) 650 mg Q6H PRN PO PAIN LEVEL 1-3 OR FEVER; Start at 04:00 Acetaminophen (Tylenol Supp) 650 mg Q6H PRN [place] PAIN LEVEL 1-3 OR FEVER; Start 07/08/16 at 04:00 Docusate Sodium (Colace) 100 mg Q12H PRN PO CONSTIPATION; Start 07/08/16 at 04: 00 Bisacodyl 5 mg 5 mg DAILY PRN PO CONSTIPATION; Start 07/08/16 at 04:00 Sodium Chloride (NS) 1,000 ml @ 80 mls/hr [id number] IV Last administered on 07/11 06:07; Admin Dose 80 MLS/HR; Start 07/08/16 at 04:00 Pantoprazole (Protonix Iv) 40 mg BID@06,18 IV Last administered on 07/11/16 06 :07; Admin Dose 40 MG; Start 07/08/16 at 18:00 Nystatin (Nystatin Susp) 5 ml QID PO Last administered on 07/11/16 12:42; Admin Dose 5 ML; Start 07/08/16 at 17:00 Ondansetron HCl (Zofran Inj) 4 mg Q4H PRN IV NAUSEA AND/OR VOMITING Last administered on 07/10/16 17:45; Admin Dose 4 MG; Start 07/09/16 at 20:00 SARI CARDOZA M.D. July 11, 2016 12:51
--- NOTE | 2016-07-11 13:42 | PDOCDIS ---
Discharge Instructions DIAGNOSIS Discharge Diagnosis: 1. Anemia 2. Reported presyncope 3. Tongue cancer 4. reported Bacteremi CONDITION Patient Condition: Stable HOME CARE INSTRUCTIONS: Special Diet: [facility] soft FOLLOW UP/APPOINTMENTS Appointments 1. Follow up with Dr. Angela Moeller on Thursday July 14, 2016 2. Follow up with Dr. Betsy Vila in 1-2 weeks 3. Follow up ksenia Brewer on Wednesday at 1pm o 07/13/16 JESSICA HALL July 11, 2016 13:42
[2016-07-11] MEDS ORDERED: PANT40TA4 PO (13:50)
--- NOTE | 2016-07-11 15:12 | RADRPT ---
Echocardiogram Report Patient Name: VALERY SÁNCHEZ Gender: Female Date: 1965 Study Date: 11-Jul-2016 Internal Combustion Engine Subassembler: Ivana [facility] Location: [id number] Ref. Physician: CARLOS JOHN Quality: Good Procedures: Transthoracic echocardiogram with complete 2D, M-Mode, and doppler examination. Indications: Pre-Syncope. 2D/M Mode Doppler Measurement Value Normal Ranges Measurement Value Normal Ranges LVIDd 2D 4.2 3.5 - 5.6 cm AV Peak Farhad 0.9 m/sec LVIDs 2D 3.0 2.1 - 4.1 cm AV Peak PG 3.3 mmHg LVPWd 2D 0.8 0.6 - 1.1 cm LVOT Peak Farhad 0.8 m/sec IVSd 2D 0.8 0.6 - 1.1 cm LVOT Peak PG 2.5 mmHg AoR Diam 2D 2.9 2.0 - 3.7 cm MV E Peak Farhad 0.5 m/sec EDV 2D 76.6 cm3 MV A Peak Farhad 0.5 m/sec ESV 2D 27.9 cm3 MV E/A 1.1 MV Decel Time 328 msec MV Decel [place] 2 MV E/A 1.1 TR Peak Farhad 2.2 m/sec TR Peak PG 19.7 mmHg Findings Left Ventricle: Normal left ventricular systolic function. Normal left ventricular cavity size. Normal left ventricular wall thickness. Ejection fraction is visually estimated at 65 %. Abnormal Diastolic Function. Right Ventricle: Normal right ventricular size. Normal right ventricular systolic function. Left Atrium: The left atrium is normal in size. Right Atrium: The right atrium is normal in size. Mitral Valve: Mitral valve leaflets appear mildly thickened. Mild mitral annular calcification. Aortic Valve: Normal appearance of the aortic valve. No significant aortic stenosis or insufficiency. Tricuspid Valve: Normal appearance and function of the tricuspid valve with trace physiologic regurgitation. Pericardium: Normal pericardium with no significant pericardial effusion. Aorta: Normal aortic root. IVC: Normal size and poor respiratory collapse consistent with normal right atrial pressure. Conclusions 1.Normal left ventricular systolic function. Normal left ventricular cavity size. Normal left ventricular wall thickness. Ejection fraction is visually estimated at 65 %. Abnormal Diastolic Function. No Left Ventricular Outflow obstruction seen. 2.Normal right ventricular size. Normal right ventricular systolic function. 3.Mitral valve leaflets appear mildly thickened. Mild mitral annular calcification. 4.Normal appearance of the aortic valve. No significant aortic stenosis or insufficiency. 5.Normal appearance and function of the tricuspid valve with trace physiologic regurgitation. 6.Normal pericardium with no significant pericardial effusion. Electronically Signed By: Dnoato Khoury 11-Jul-2016 15:10:56 -0700 Patient Name: VALERY SÁNCHEZ Study Date: 11-Jul-2016 [id number]
--- NOTE | 2016-07-11 16:56 | DS ---
Date/Time of Note Date/Time of Note DATE: 07/11/16 TIME: 16:54 Discharge Summary Admission/Discharge Info Admit Date/Time July 07, 2016 at 21:39 Discharge Date/Time Final Diagnosis 1. Symptomatic anemia. 2. Presyncope. 3. Tongue cancer. 4. Gram-positive bacteremia. Patient Condition: Stable Consults 1. Dr. Angela Moeller 2. Dr. Heath Saldivar 3. Dr. Betsy Vila 4. Dr. Kit Wells [facility] Course This is a 50-year-old female with history of hypertension who came to [facility] due to reports of dizziness and fatigue. Patient does have a history of needing transfusions for her anemia secondary to her chemotherapy for her history of tongue cancer. She had not previously had radiation and surgery however developed tongue cancer on the opposite side of her tongue. Her noted last chemotherapy was 2 weeks prior to this admission. Patient was found to be symptomatically anemic and did require 2 units of packed red blood cell transfusion from which he did have good response to. She was also seen by mems process engineer and underwent EGD and colonoscopy on June. Per EGD did show her to have mild gastritis and erosive esophagitis. We did continue her on PPI medication. Of note colonoscopy was incomplete due to poor bowel preparation. Patient did improve during her stay however prior to discharge she did have reported presyncope on July 10, 2016. She was seen by panel cutter. Of note echocardiogram did show her to have an ejection fraction of 65%. No further reports of syncope were done and we did monitor her neuro status. Likely transient. She was otherwise optimized medically. For her tongue cancer she was seen by oncologist. We did continue with recommendations and she did have outpatient follow-up on discharge. She was also seen with gram -positive bacteremia and seen by infectious disease physician. She was initially placed on antibiotics but after review it was likely contaminant. She remained afebrile with no symptoms. We did have antibiotics discontinued per ID recommendations. During the course of stay she did improve. She was plan for follow-up with oncologist as outpatient for further management and care for tongue cancer and possible neck metastasis. The plan of care was discussed with the patient and patient did verbalize her understanding. On the day of discharge patient was in stable condition Discussed plan of care with Dr. Castro Discharge process 40 minutes Home Meds Active Scripts Pantoprazole (Protonix) 40 Mg Tabec, 40 MG PO BID for 30 Days, TAB Prov:JESSICA HALL 07/11/16 Reported Medications Morphine Sulfate* (Ms Contin*) 15 Mg Tablet.sa, 15 MG PO Q12, TAB 07/07/16 Duloxetine Hcl* (Duloxetine Hcl*) 60 Mg Capsule.dr, 120 MG PO DAILY, #30 CAP 07/07/16 Alprazolam* (Alprazolam*) 1 Mg Tablet, 1 MG PO TID Y for ANXIETY, TAB 07/07/16 Oxycodone HCl/Acetaminophen (Percocet 5-325 mg Tablet) 1 Each Tablet, 2 TAB PO Q4H Y for PRN, TAB 07/07/16 Discontinued Reported Medications Omeprazole* (Omeprazole*) 40 Mg Capsule.dr, 40 MG PO DAILY, #30 CAP 07/07/16 NPH, Human Insulin Isophane (Humulin N Kwikpen) 100 Unit/1 Ml Insuln.pen, 20 UNIT SQ AC BREAKFAST, EA 07/10/16 [imdur] No Conflict Check, 30 MG PO DAILY 07/10/16 Ondansetron Hcl* (Zofran*) 4 Mg Tab, 4 MG PO Q6H Y for NAUSEA AND OR VOMITING, TAB 07/10/16 Follow-up Plan CONDITION Patient Condition: Stable HOME CARE INSTRUCTIONS: Special Diet: [place] soft FOLLOW UP/APPOINTMENTS Appointments 1. Follow up with Dr. Angela Moeller on Thursday July 14, 2016 2. Follow up with Dr. Betsy Vila in 1-2 weeks 3. Follow up wiht Dr. Damon Brewer on Wednesday at 1pm o 07/13/16 Primary Care Provider Gokul Briggs MD Pending Labs Laboratory Tests Test 07/11/16 00:37 07/11/16 05:00 07/11/16 06:45 Troponin I < 0.012ng/ml (0.00-0.12) < 0.012ng/ml (0.00-0.12) Phosphorus Level 4.4mg/dl (2.5-4.9) Magnesium Level 1.5mg/dl (1.7-2.5) White Blood Count 5.210^3/ul (4.8-10.8) Red Blood Count 3.6110^6/ul (4.20-5.40) Hemoglobin 10.1g/dl (12.0-16.0) Hematocrit 30.9% (37.0-47.0) Mean Corpuscular Volume 85.6fl (82.0-101.0) Mean Corpuscular Hemoglobin 28.0pg (29.0-33.0) Mean Corpuscular Hemoglobin Concent 32.7g/dl (32.0-37.0) Red Cell Distribution Width 16.5% (11.5-14.5) Platelet Count 44370^3/UL (140-415) Mean Platelet Volume 10.6fl (7.4-10.4) Neutrophils % 60.4% (39.0-77.0) Lymphocytes % 28.9% (15.0-51.0) Monocytes % 8.9% (0.0-11.0) Eosinophils % 0.6% (0.0-7.0) Basophils % 0.6% (0.0-2.0) Nucleated Red Blood Cells % 0.0/100WBC (0.0-0.0) Neutrophils # 3.110^3/ul (1.6-7.5) Lymphocytes # 1.510^3/ul (0.8-2.9) Monocytes # 0.510^3/ul (0.3-0.9) Eosinophils # 0.010^3/ul (0.0-0.5) Basophils # 0.010^3/ul (0.0-0.1) Nucleated Red Blood Cells # 0.010^3/ul (0.0-0.0) Sodium Level 137mmol/L (135-144) Potassium Level 3.5mmol/L (3.5-5.1) Chloride Level 106mmol/L (97-110) Carbon Dioxide Level 27mmol/L (21-31) Anion Gap 8 (8-16) Blood Urea Nitrogen 8mg/dl (7-20) Creatinine 0.81mg/dl (0.44-1.00) Glucose Level 96mg/dl (70-220) Calcium Level 8.7mg/dl (8.4-10.2) JESSICA HALL July 11, 2016 16:56
[2016-07-11] MEDS ORDERED: HYDROCODONE/APAP (10/325) TAB PO ONE (18:30)
--- NOTE | 2016-07-14 00:23 | RADRPT ---
Vent Rate: 84 bpm RR Interval: 0 msec MD Interval: 136 msec QRS Duration: 84 msec QT Interval: 394 msec QTC Interval: 465 msec P-R-T [place]: 78 - 73 - 86 degrees Normal sinus rhythm Prolonged QT Abnormal ECG Electronically Signed By: Heath Saldivar [id number]
== END 2016-07-11 19:15 | disposition home or self-care (01) | DRG 315 ==
LOC: E/R 16:40 → MS4 21:39
PROVIDERS: ADMIT Family Medicine; ATTEND Family Medicine
PROC: 30233N1 Transfusion of Nonautologous Red Blood Cells into Peripheral Vein, Percutaneous Approach (ICD-10-PCS; principal; 2016-07-07)
PROC: 0DJD8ZZ Inspection of Lower Intestinal Tract, Via Natural or Artificial Opening Endoscopic (ICD-10-PCS; 2016-07-09)
PROC: 0DB68ZX Excision of Stomach, Via Natural or Artificial Opening Endoscopic, Diagnostic (ICD-10-PCS; 2016-07-09 12:00)
DX: I95.9 Hypotension, unspecified (principal); D62 Acute posthemorrhagic anemia; R78.81 Bacteremia; D64.81 Anemia due to antineoplastic chemotherapy; C02.9 Malignant neoplasm of tongue, unspecified; N39.0 Urinary tract infection, site not specified; K22.10 Ulcer of esophagus without bleeding; K92.1 Melena; I10 Essential (primary) hypertension; T45.1X5A Adverse effect of antineoplastic and immunosuppressive drugs, initial encounter; Z87.891 Personal history of nicotine dependence; R79.1 Abnormal coagulation profile; B95.7 Other staphylococcus as the cause of diseases classified elsewhere; K44.9 Diaphragmatic hernia without obstruction or gangrene; K29.70 Gastritis, unspecified, without bleeding; R51 Headache; R00.1 Bradycardia, unspecified; E87.6 Hypokalemia
CPT/HCPCS: 36430; 70491; 71010; 80048; 80053; 80202; 81001; 81003; 83605; 83735; 84100; 84443; 84484; 85025; 85610; 85730; 86850; 86900; 86901; 86920; 87040; 87086; 93005; 93306; 97116; 97162; 97530; C9113; J0692; J0696; J1170; J2405; J3370; J3475; J3480; J7030; J7040; J7050; P9016; Q9967